=== PATIENT | female | born 1965 | race Caucasian/White ===

== ENCOUNTER 2016-07-12 11:18 | Inpatient (IN) | payer BC ==
--- NOTE | ~2016-07-12 | IDS ---
Interim Discharge Summary [facility] [address] [place]. [address] NAME: KRISH JONES : [birth year] STATUS : [facility] [id number] AGE: 50 ADM/REG DATE : 07/12/16 MR#: [id number] REPORT SERV DATE: 07/23/16 DICTATED BY: CHARLES GIBSON DATE: 07/23/16 REPORT STATUS : Draft TRANSCRIBED BY: MODL DATE: 07/23/16 ADMISSION DATE: 07/12/2016 DISCHARGE DATE: REASON FOR ADMISSION: Acute abdominal pain after having cholecystectomy done at [facility]. HISTORY OF PRESENT ILLNESS: Please refer Dr. Cleveland Garcia's history and physical dated 07/12/2016 for complete details regarding the patient's admission. In brief, the patient was initially admitted to the Hospitalist Service for what was initially concerning for an appendicitis and abnormal LFTs. HOSPITAL COURSE: From admission to 07/18/2016, please refer Dr. Cleveland Garcia's interim summary. In brief, the patient was diagnosed with biliary ductal mass along with transaminitis. Urinary tract infection that had been treated with IV antibiotics. A recent cholecystectomy with subsequent medication and opioid-induced constipation. Splenomegaly, recent Monospot positive. Post-ERCP pancreatitis. In brief, the patient presented to this hospital after developing abdominal pain, as initially thought to be a bile leak from her cholecystectomy. She had a CT scan of her abdomen done in the ER, which was concerning for an appendicitis. Dr. Harsh Wagner was consulted that day and felt like the patient did not have an appendicitis. GI Medicine was consulted for the transaminitis. They suggested doing a HIDA scan to rule out a bile leak, that was performed on 07/13 which showed status post cholecystectomy with liver scan sign indicative of either high-grade common bile duct obstruction or severe hepatic dysfunction. 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 This was then followed up by CT scan of the abdomen with contrast, which showed intrahepatic biliary ductal dilatation with soft tissue density measuring up to 17 x 60 mm at the level of common hepatic duct concerning for underlying mass at this level. Dr. Corado went in and did an ERCP on 07/15/2016, brushings demonstrated negative for malignancy. The patient continued to have elevated total bilirubin and AST, ALT levels, by all accounts it was felt like the patient had a malignancy, however, the location of the biliary mass was a diagnostic dilemma. Given the location of the biliary mass, Dr. Harris got involved to evaluate for possible exploratory surgery. Given her a non-improving liver enzymes and the fact that she may need exploratory surgery, Dr. Harris had discussed with IR to place a percutaneous drain. She currently has 2 drains. The next day she noticed some clots coming from the drains. Dr. Hester went back into the drains to evaluate its positioning and functioning and it demonstrated a good position. Her LFTs took a little bit of time, but they finally started going down. Biopsy results obtained by Dr. Hester was preliminary which showed positive for lymphoid tissue. Dr. Corado had also noticed the following day after the percutaneous drains were placed, the patient had pretty significant thickened gastric folds. Dr. Corado then went in and did an EGD, performed an EGD on 07/20/2016 and found a few small nodules with no bleeding and no stigmata of recent bleeding were found in the stomach. A biliary stent was removed as the patient had percutaneous drains and also biopsied some nodules. 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 We finally had our diagnosis, hematology/Oncology was following, Dr. Francisco Javier Graff had already Interim Discharge Summary [address] [address] NAME: KRISH JONES : 61 STATUS : [facility]#: [id number] AGE: 50 ADM/REG DATE : 07/12/16 MR#: [id number] REPORT SERV DATE: 07/23/16 DICTATED BY: CHARLES GIBSON DATE: 07/23/16 REPORT STATUS : Draft TRANSCRIBED BY: MODL DATE: 07/23/16 been following the patient for the past couple of days. Now that we have the final pathology report, the patient is going to be transferred over to the [address] [place] [address] under the service of Dr. Carl for initiation of Hyper-CVAD. She will receive her first dose today on 07/23/2016 and would likely be here for approximately four days. She had an echocardiogram done today just to evaluate her heart function prior to initiation of chemotherapy. DISPOSITION: Anticipate discharging the patient home likely with her percutaneous drains. Follow up with Dr. Harris in several weeks after she recovers from her Hyper-CVAD treatment. 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 Corado during an EGD, now with percutaneous drains; post ERCP pancreatitis; Enterobacter urinary tract infection, now resolved with antibiotics; recent cholecystectomy with opioid-induced constipation; splenomegaly; recent Monospot positive history; type 2 diabetes, on metformin at home. CONSULTATION: Dr. Wagner initially in the ER for appendicitis. Dr. Ro with Infectious Disease, no longer following. Dr. Corado with GI Medicine. Dr. Francisco Javier Graff and Dr. Guzman with Oncology. Dr. Harris for surgical evaluation. PROCEDURES: Include ERCP with stent placement 07/15/2016, EGD on 07/20/2016 with biopsy and stent removal, PTC drains, CT scan of the abdomen and pelvis without contrast, CT scan of the abdomen and pelvis with IV contrast, MRCP, HIDA scan, CT scan of the chest with contrast, KUB, chest x-ray, drain evaluation by IR x2, 2D echocardiogram. Further disposition by Dr. Carl, but as stated above, anticipate patient being in hospital for four days with initiation of Hyper-CVAD, will likely go home with the drains and follow up Dr. Harris in several weeks. DORA/QUINCY Charles Gibson MD / [id number] CC: Charles Gibson MD
--- NOTE | ~2016-07-12 | IDS ---
Interim Discharge Summary [place] [address] [place]. [address] NAME: KRISH JONES : 61 STATUS : ADM IN PAT#: [id number] AGE: 50 ADM/REG DATE : 07/12/16 MR#: [id number] REPORT SERV DATE: 07/20/16 DICTATED BY: FLAVIO BURNS DATE: 07/19/16 REPORT STATUS : Draft TRANSCRIBED BY: MODL DATE: 07/19/16 ADMISSION DATE: 07/12/2016 DISCHARGE DATE: 07/18/2016 CURRENT DIAGNOSES: 1. Biliary ductal mass. 2. Elevated liver function tests. 3. Urinary tract infection. 4. Recent cholecystectomy with subsequent medication and opioid-induced constipation. 5. Splenomegaly. 6. Recent Monospot positive history. 7. Gtg-fduhwpm-qoubtyyqi diabetes. 8. Post procedure endoscopic retrograde cholangiopancreatography pancreatitis. 9. Mild appendicitis. CONSULTATIONS: 1. Dr. Wagner, initially in the ER for appendicitis. 2. Infectious Disease. 3. GI, Dr. Corado and Dr. Michaud. 4. Oncology, Dr. Graff. 5. Dr. Harris, for hepatobiliary evaluation. CURRENT LABS AND PROCEDURES: Initial AST and ALT 381 and 1152, alk phos 945, T bili 2.8, lipase of 123, and lactate was 1.2. CT abdomen and pelvis on admission thickening appendix could indicate mild appendicitis, no significant periappendiceal inflammation, right colonic fecal stasis, distended urinary bladder, cholecystectomy, and hysterectomy. Procalcitonin 0.22. Hemoglobin A1c of 5.4. Ammonia 27. Hepatitis profile was negative. HIDA scan performed status post cholecystectomy with high-grade common bile duct obstruction or severe hepatic dysfunction. Blood cultures have remained negative. MRCP large dominant encapsulated malignant process involving the proper hepatic ductal system causing high-grade obstruction, secondary intrahepatic tumor also identified. Differential includes cholangiocarcinoma versus metastatic versus lymphoma. EBV antibody IgG positive and consistent with prior exposure, but not current activation per ID. EGD and ERCP noted for severe biliary stricture, malignant-appearing mass path brushings negative for malignancy. CT with contrast chest, abdomen, and pelvis, initial report intrahepatic biliary ductal dilatation with soft tissue density at the level of the common Interim Discharge Summary [place] [address] [facility] [place]. [address] NAME: KRISH JONES DOB: [birth year] STATUS : ADM IN PAT#: [id number] AGE: 50 ADM/REG DATE : 07/12/16 MR#: [id number] REPORT SERV DATE: 07/20/16 DICTATED BY: FLAVIO BURNS DATE: 07/19/16 REPORT STATUS : Draft TRANSCRIBED BY: MODL DATE: 07/19/16 duct to there from underlying mass. The distal common duct is decompressed, similar findings on MRCP of 07/13/2016. For further evaluation, ERCP may be helpful and appropriate. Mildly prominent appendix with distal to measuring up to 8 mm in diameter. Does not appear significant periappendiceal inflammation change strongly suggestive of acute appendicitis. Small hernia and a mild right upper lobe atelectasis, otherwise no acute cardiopulmonary etiology. Addendum was also done on 07/18/2016 at 3:[address] Harris and Radiology. Several borderline lymph nodes of upper abdomen. They are periportal lymph nodes, measuring 10 x 14 mm and some prominence iliac nodes measuring 10 x 15, just above the left renal vessels. Please see complete report on chart. HOSPITAL COURSE: Please see H and P for complete details of HPI. Briefly, this is a very pleasant 50-year-old Bos[place]ian female with great family support, her daughter who also works at [employer] as nurse practitioner for Cardiology, who has had somewhat confusing series of events over the last few months, as the patient has typically been fairly well state of health, did have history of malignancy in 2007 with resultant hysterectomy and resolution, who approximately for the last two months has undergone a viral infection with Monospot, subsequently had abdominal discomfort and found to have LFT elevations and HIDA scan with multiple CT scans. Ultrasounds of abdomen showed gallbladder disease approximately. One week prior to admission, the patient had undergone cholecystectomy that was negative on pathology with clean borders margins pictures by Dr. Dietrich in [place]. The patient was doing well and has been appropriately monitored by her PCP for serial LFTs. The patient did have a mild splenomegaly, that was also being monitored, however, was attributed to gallbladder disease and recent Monospot positive. However, on arrival to emergency room and during this hospital stay, the patient did have sudden elevations in LFTs when compared to most recent LFTs, which were within normal range, these are significantly abnormal. A dry CT without contrast, in the emergency room initially concerning for appendix, this was evaluated by General Surgery. Further workup was recommended, as the patient was not tender in the appendix area and right lower quadrants, and the patient was started on Zosyn. Further evaluation with ERCP for bowel leak from recent procedure was performed, concerning for an encapsulating mass MRCP was then subsequently performed and further defining mass and lesions. CT chest, abdomen, and pelvis for additional sites as concern for malignancy has been raised. From here, an ERCP was also performed with brushings, a single stent was able to be passed, however, additional duct was not able to have a stent placement. Pathology was negative. At this point due to clinical suspicion, it was recommended for Oncology evaluation and biliary surgery consultation, Dr. Harris was consult, Dr. Francisco Javier Graff was consulted on board, and further evaluation with possible percutaneous drain placement has been suggested and tentatively planned for 07/19/2016 to further assist in the diagnostic procedures. The patient additionally had post ERCP pancreatitis, which has shown improvement with IV fluids. Opioid constipation resolved with initial Relistor and Movantik combination. The patient has had slow improvement of LFTs and is still monitoring post ERCP. Her family has been updated with each test and procedure by Multidisciplinary Team. Care to be resumed by Medicine Team in a.m. NEGINN/QUINCY Interim Discharge Summary [address] [address] NAME: KRISH JONES : 61 STATUS : ADM IN PAT#: [id number] AGE: 50 ADM/REG DATE : 07/12/16 MR#: [id number] REPORT SERV DATE: 07/20/16 DICTATED BY: FLAVIO BURNS DATE: 07/19/16 REPORT STATUS : Draft TRANSCRIBED BY: MODNy DATE: 07/19/16 Flavio Burns MD / [id number] CC: UNKNOWN Kevin Noel M.D.
--- NOTE | ~2016-07-12 | EGD ---
EGD REPORT [facility] [address] [place] [address] NAME: KRISH ARGUELLO : 61 STATUS : ADM IN PAT#: [id number] AGE: 50 ADM/REG DATE : 07/12/16 MR#: [id number] REPORT SERV DATE: 07/15/16 DICTATED BY: DATE: REPORT STATUS : Draft TRANSCRIBED BY: [employer] DATE: 07/15/16 [facility] Patient Name: Krish Arguello Date of : 1965 Attending MD: BLAKE DURAN MD Procedure Date No Time: 07/15/2016 Procedure: ERCP Indications: Abnormal MRCP, Tumor of the upper third of the main bile duct Medicines: General Anesthesia Complications: No immediate complications. Estimated blood loss: Minimal. Procedure: Pre-Anesthesia Assessment: - ASA Grade Assessment: II - A patient with mild systemic disease. After obtaining informed consent, the scope was passed under direct vision. Throughout the procedure, the patient's blood pressure, pulse, and oxygen saturations were monitored continuously. The TJF [id number] was introduced through the mouth, and advanced to the duodenum and used to inject contrast into the bile duct. The ERCP was accomplished without difficulty. The patient tolerated the procedure well. Findings: The vocational nursing instructor film was normal. The esophagus was successfully intubated under direct vision. The scope was advanced to a normal major papilla in the descending duodenum without detailed examination of the pharynx, larynx and associated structures, and upper GI tract. After engaging the papilla, a 0.035 inch x 260 cm straight Dreamwire was passed into the biliary tree. The short-nosed traction sphincterotome was passed over the guidewire and the bile duct was then deeply cannulated. Contrast was injected. I personally interpreted the bile duct images. Image quality was adequate. The upper third of the main bile duct contained a single severe stenosis 15 mm in length. A 10 mm biliary sphincterotomy was made with a monofilament traction (standard) sphincterotome using ERBE electrocautery due to difficulty with obtaining initial entry into the bile duct. The sphincterotomy oozed blood but stopped spontaneously. Dilation of the common bile duct stenosis with a 4 mm balloon dilator was successful. Cells for cytology were obtained by brushing. One 10 Fr by 9 cm plastic stent with a single external flap and a single internal flap was placed into the common bile duct to the right intrahepatics. Bile flowed through the stent. The stent was in good position. The sphinctertome was used again to attempt to place a second wire and stent into the left intrahepatics, but despite several attempts, the wire EGD REPORT [place] [id number] [facility] [place]. [address] NAME: KRISH ARGUELLO : 61 STATUS : [facility]#: [id number] AGE: 50 ADM/REG DATE : 07/12/16 MR#: [id number] REPORT SERV DATE: 07/15/16 DICTATED BY: DATE: REPORT STATUS : Draft TRANSCRIBED BY: [employer] DATE: 07/15/16 could not be passed into the left biliary system. The endoscope was withdrawn from the patient. Impression: - A severe biliary stricture was found. The stricture was malignant appearing. Recommendation: - Return patient to [facility] for [facility] care. - Await cytology results. - Zosyn (piperacillin tazobactam) 3.375 gm IV q 6 hr for 3 days. Procedure Code(s): --- Professional --- 40712, Endoscopic retrograde cholangiopancreatography (ERCP); with placement of endoscopic stent into biliary or pancreatic duct, including pre- and post-dilation and guide wire passage, when performed, including sphincterotomy, when performed, each stent Diagnosis Code(s): --- Professional --- K83.1, Obstruction of bile duct R93.2, Abnormal findings on diagnostic imaging of liver and biliary tract D49.0, Neoplasm of unspecified behavior of digestive system CPT copyright 2013 [employer]. All rights reserved. The codes documented in this report are preliminary and upon auto self service station attendant review may be revised to meet current compliance requirements. Blake Duran MD BLAKE DURAN MD 07/15/2016 8:47 AM This report has been signed electronically. Number of Addenda: 0 Note Initiated On: 07/15/2016 6:54 AM Scope Withdrawal Time 0 hours 0 minutes 0 seconds [id number] [id number]
--- NOTE | ~2016-07-12 | DS ---
Discharge Summary [facility] [address] [place]. [address] NAME: KRISH JONES : [birth year] STATUS : ADM IN [facility]#: [id number] AGE: 50 ADM/REG DATE : 07/12/16 MR#: [id number] REPORT SERV DATE: 08/04/16 DICTATED BY: HEATHER DUMONT DATE: 08/04/16 REPORT STATUS : Draft TRANSCRIBED BY: MODL DATE: 08/04/16 ADMISSION DATE: 07/12/2016 DISCHARGE DATE: 08/04/2016 DISCHARGE DIAGNOSES: 1. B lymphoblastic acute lymphoblastic leukemia. 2. Elevated bilirubin of unclear etiology. 3. Biliary obstruction. 4. Pancytopenia secondary to chemotherapy. 5. Fever and neutropenia. PROCEDURES: 1. EGD with biopsy of stomach. 2. Placement of biliary catheters with biopsy of biliary tumor. 3. Repositioning of biliary drains. 4. Lumbar puncture with intrathecal chemotherapy administration x2. 5. Bone marrow biopsy. HOSPITAL COURSE: The patient was admitted to the hospital. She underwent an EGD, which did demonstrate B lymphoblastic leukemia lymphoma. She had biliary drains placed thinking that a Kl[place] tumor was present (prior to the EGD). Biopsy showed B lymphoblastic lymphoma. The drains were placed. She had bone marrow biopsy showing B lymphoblastic lymphoma with normal cytogenetics and weak CD20. She had a lumbar puncture with intrathecal chemotherapy administration, which showed positive cytology. She had a second administration of intrathecal chemotherapy as well. She underwent chemotherapy with T-[id number]-[id number]. She received full doses of rituximab, cyclophosphamide, vincristine. She received one four-day course of dexamethasone. Her dose of doxorubicin was given at 50% due to elevated bilirubin. The day 11 vincristine was not given secondary to elevated bilirubin. She has not yet been given a second course of dexamethasone. She had a bilirubin approximately 2.5 at admission and elevated transaminases. The transaminases improved with chemotherapy and placement of the biliary drain, but her bilirubin odalys to as high as 14. Today on 08/04/2016, it is down to 12.4 from 14.3 yesterday. She has pancytopenia and fever and has been on variety of antibiotics followed by infectious disease. Currently, she is on prophylactic acyclovir along with fluconazole 400 mg daily, levofloxacin and vancomycin with a plan to discontinue the levofloxacin. She has not been febrile recently. She did have a Gram positive from one of the biliary drains, significance of which is unclear. On 08/04/2016, the patient had requested transfer to [place]. There, she will be evaluated by manager of clinical, none is currently available at [facility]. DICTATED BY: Heather Dumont M.D. Discharge Summary [facility] [address] [place]. [address] NAME: KRISH JONES : 61 STATUS : ADM IN PAT#: [id number] AGE: 50 ADM/REG DATE : 07/12/16 MR#: [id number] REPORT SERV DATE: 08/04/16 DICTATED BY: HEATHER DUMONT DATE: 08/04/16 REPORT STATUS : Draft TRANSCRIBED BY: QUINCY DATE: 08/04/16 STALIN/QUINCY Heather Dumont M.D. / [id number] CC: Francisco Javier Graff M.D.
--- NOTE | ~2016-07-12 | HP ---
History And Physical [place] [id number] [facility] [place]. [address] NAME: KRISH JONES : 61 STATUS : ADM IN PAT#: [id number] AGE: 50 ADM/REG DATE : 07/12/16 MR#: [id number] REPORT SERV DATE: 07/12/16 DICTATED BY: FLAVIO BURNS DATE: 07/12/16 REPORT STATUS : Draft TRANSCRIBED BY: MODNy DATE: 07/12/16 DATE OF ADMISSION: 07/12/2016 CHIEF COMPLAINT: Abdominal pain. HISTORY OF PRESENT ILLNESS: The patient is a 50-year-old, [place] female, with past medical history of pxf-ybehkfl-tzbkipxxq diabetes, prior cancer status post hysterectomy in 2007, not requiring any additional treatment after surgical hysterectomy, who recently underwent a gallbladder surgery for abnormal LFTs, discovered to have cholesterol type stones and abnormal liver. HIDA scan done at outside facility was also noted to be abnormal, prompting surgical removal of liver. The patient did report somewhat clinical improvement, but over the last night started having abdominal pain similar to prior episode last night. The patient is accompanied by family members, daughter who is a nurse practitioner for [employer], and son who is at bedside. The patient reports that abdominal pain she initially attributed to postsurgical changes, which have been approximately about 6 days, has been able to tolerate small liquids, soups, but symptoms have been constant, moderate severity, initially in the mid epigastric, changing to the right upper quadrant, has been moderate sharp quality, nonradiating, but is moving in position, noted with one episode of diarrhea and the sense that is just liquid stool, however, last bowel movements have been 2 days ago and more of a constipation, overflow type bowel movement. The patient has had abdominal pain. No fevers or chills. Mild decreased p.o. intake. No weakness or cough. Does not felt well. The patient reports that symptoms actually have been going on and off since April when she was diagnosed with a viral illness, was initially thought to have flu but negative. Has also had enlarged spleen. Liver function test, which at her last clinic visit, her LFTs have been resolved, but today still has consistent splenomegaly and elevated LFTs again. Symptoms worsened with palpation. No relieve, symptoms still currently present. Has been taking q.4 hours Winder over the last 24 to 48 hours for pain control, which has been minimally improving. Please also note, the patient also had a positive mono spot test and was reported to be treating this supportively. Also, found to have fatty liver incidentally on imaging done at outside facility. REVIEW OF SYSTEMS: GENERAL: No fevers or chills. Mild sweating. EYES: No eye pain or visual changes. ENT: No congestion or sore throat reported. NEURO: No headache or confusion. SKIN: No rashes or bruising reported. RESPIRATORY: No shortness of breath or cough. CV: No chest pain or palpitations reported. GI: No gross nausea or vomiting currently. Has been constipated for multiple days. One loose bowel movement, which was mainly water, significant abdominal pain, but no dark stools. : No dysuria, hematuria. MUSCULOSKELETAL: No myalgias or arthralgias. NEURO: No fatigue. HEME: No bleeding or bruising. History And Physical [address] [address] NAME: KRISH JONES : 61 STATUS : ADM IN [facility]#: [id number] AGE: 50 ADM/REG DATE : 07/12/16 MR#: [id number] REPORT SERV DATE: 07/12/16 DICTATED BY: FLAVIO BURNS DATE: 07/12/16 REPORT STATUS : Draft TRANSCRIBED BY: QUINCY DATE: 07/12/16 IMMUNOLOGIC: No rhinorrhea. PSYCH: No anxiety or confusion. PAST MEDICAL HISTORY: Noted for hyperlipidemia, win-fdujqab-nxljbrknj diabetes. SURGICAL HISTORY: Hysterectomy for cancer in 2007 and gallbladder recently approximately one week ago, cholecystectomy. SOCIAL HISTORY: No smoking, alcohol, or illicits. . Accompanied with children from [facility]. Last trip to [facility] was last year. This year only has traveled to [place] in June, but no sick contacts reported. FAMILY HISTORY: Diabetes, heart disease, kidney disease, requiring dialysis in mother. Recent allergy to sulfa as the patient has been on and off multiple treatments for either UTI or some type of infectious etiology that has been initially thought for gallbladder and abdominal pain discomfort. ALLERGIES: NOTED FOR SULFA, CODEINE. HOME MEDICATIONS: Recently completed Keflex yesterday after which she started having abdominal discomfort after last dose. Also Winder, Glucophage, and Phenergan. PHYSICAL EXAMINATION: VITAL SIGNS: The patient's blood pressure 139/83, temperature 97.9, pulse 90, respirations 14, O2 sats 98% on room air. GENERAL: No acute distress at rest, but obviously uncomfortable. Well developed, well nourished. EYES: No scleral icterus. EOMI. ENT: Dry mucous membranes. Tongue midline. RESPIRATORY: Clear to auscultation. No wheezes. CV: Regular rate. No rubs. No pedal edema. GI: Tenderness to palpation in right quadrant with mild distention and decreased bowel sounds. : Deferred. MUSCULOSKELETAL: Moves all extremities x4. SKIN: Warm, dry. LYMPH: No cervical or supraclavicular lymphadenopathy. HEME: No bleeding or bruising. NEURO: Alert and oriented. No asterixis. Moves all extremities. PSYCH: Appropriate mood and affect. LABORATORY DATA: CT abdomen and pelvis, thickened appendix, mild appendicitis, although currently no significant periappendiceal inflammation. Clinical correlation is recommended. Right colonic fecal stasis, distended urinary bladder, cholecystectomy, hysterectomy. Lactate 1.2. CBC; WBC count 10.3, H and H 13.9 and 41.9, platelets 179, bands 29. CMP: Sodium 139, potassium 3.7, chloride 105, bicarb 24, BUN and creatinine 8 and 0.83, glucose History And Physical [address] [address] NAME: KRISH JONES : 61 STATUS : ADM IN [facility]#: [id number] AGE: 50 ADM/REG DATE : 07/12/16 MR#: [id number] REPORT SERV DATE: 07/12/16 DICTATED BY: FLAVIO BURNS DATE: 07/12/16 REPORT STATUS : Draft TRANSCRIBED BY: MODL DATE: 07/12/16 144. AST and ALT 381 and 1152. Alkaline phosphatase 945. T. bilirubin 2.8. Lipase 123. Of note, the patient's recent LFTs, AST, ALT 18 and 27, bilirubin 0.4. Has noted to have fatty infiltration of liver. Mild splenomegaly. ASSESSMENT AND PLAN: 1. Abdominal pain with elevated LFTs. 2. Possible mild appendicitis. 3. Recent Monospot positive with splenomegaly and bandemia. 4. Recent cholecystectomy. 5. Jtg-yigvhda-pvnsnnyzn diabetes type 2. 6. Hyperlipidemia. 7. Constipation. PLAN: 1. For abdominal pain with elevated LFTs biliary tract disease versus constipation versus viral infectious unperformed with history of gallbladder prior, may benefit from repeat HIDA. We will defer to Surgery's recommendations. Does have fatty liver. GI, family requesting Dr. Michaud for additional evaluation. 2. Possible mild appendicitis. Treat constipation. Supportive treatment. Surgery consult by ER to evaluate. 3. Recent monospot with splenomegaly and bandemia. Recently stopped antibiotics yesterday, but has had persistent splenomegaly, multiple viral and bacterial issues over the last two months. We will ask ID to evaluate for quite complicated sudden bacterial and viral episodes over the last two months, but no definitive source. 4. Recent cholecystectomy. Check for possible questionable leakage with surgical procedure by Dr. Mcadams in [place], was reported to have cholesterol stones. CT also performed. 5. Lys-lrjgsfw-mpzlzritx diabetes. Sliding scale insulin. Borderline. 6. Hyperlipidemia. Check lipid panel. Repeat due to have positive cholesterol stones in gallbladder per family. 7. Constipation. Dose of Relistor, Movantik, bowel regimen. Anticipate greater than two midnight inpatient stay. DDN/MODL Flavio Burns MD / [id number] CC: Flavio Burns MD
--- NOTE | ~2016-07-12 | CN ---
Consultation Report [facility] [address] [place]. [address] NAME: KRISH JONES : 61 STATUS : ADM IN [facility]#: [id number] AGE: 50 ADM/REG DATE : 07/12/16 MR#: [id number] REPORT SERV DATE: 07/12/16 DICTATED BY: SHIRLEY WAGNER DATE: 07/12/16 REPORT STATUS : Draft TRANSCRIBED BY: MODL DATE: 07/12/16 SURGERY CONSULTATION NOTE DATE OF CONSULTATION: 07/12/2016 REASON FOR CONSULTATION: Abdominal pain. HISTORY OF PRESENT ILLNESS: This is a 50-year-old female, who six days ago, had a laparoscopic cholecystectomy done for cholelithiasis. She initially felt better after this from her left upper quadrant pain, but subsequently had recurrence of right upper quadrant abdominal pain. She was evaluated in the emergency department and on CT scan, was felt to have an enlarged appendix. Although, there was no bile collection, no abscess in the right upper quadrant. The patient's white blood cell count was normal. She states she had some night sweats, but denies any fevers. She is currently being treated for urinary tract infection as well. MEDICAL HISTORY: Please see the admitting history and physical by Dr. Garcia. SURGICAL HISTORY: Please see the admitting history and physical by Dr. Garcia. SOCIAL HISTORY: Please see the admitting history and physical by Dr. Garcia. FAMILY HISTORY: Please see the admitting history and physical by Dr. Garcia. ALLERGIES: PLEASE SEE THE ADMITTING HISTORY AND PHYSICAL BY DR. GARCIA. MEDICATIONS: Please see the admitting history and physical by Dr. Garcia. REVIEW OF SYSTEMS: Please see the admitting history and physical by Dr. Garcia. PHYSICAL EXAMINATION: VITAL SIGNS: Blood pressure 139/83, temperature 97.7, pulse 90, respiratory rate 14, 99% on room air. GENERAL: Alert and oriented x3. No acute distress. HEENT: Normocephalic, atraumatic. NECK: Supple. No carotid bruits are noted. No cervical lymphadenopathy. No thyromegaly. No thyroid nodules are palpable. CHEST: Clear to auscultation bilaterally. HEART: Regular rate and rhythm. No murmurs, rubs, or gallops are auscultated. ABDOMEN: Soft and only mildly tender in the right upper quadrant and epigastrium. There is no left upper quadrant tenderness to palpation. There is no right lower quadrant tenderness to palpation. There is no Rovsing sign, no psoas sign. There are certainly no peritoneal signs. Her incisions are all clean, dry, and intact with Dermabond still in place. No Consultation Report [place] [address] [place] [address] NAME: KRISH JONES : 61 STATUS : ADM IN [facility]#: [id number] AGE: 50 ADM/REG DATE : 07/12/16 MR#: [id number] REPORT SERV DATE: 07/12/16 DICTATED BY: SHIRLEY WAGNER DATE: 07/12/16 REPORT STATUS : Draft TRANSCRIBED BY: QUINCY DATE: 07/12/16 erythema around any of them. EXTREMITIES: Warm and well perfused without edema. NEURO: No focal neurologic deficits are noted on gross exam. IMAGING: As above. I personally reviewed the images. I do not feel that she necessarily has acute appendicitis as there is no stranding around her appendix. Although, certainly it seems a little bit prominent. There was no evidence of complications from her prior surgery. There are [address] It appeared to be in good position without surrounding stranding any evidence of biloma or abscess. LABORATORIES: Her total bilirubin is elevated at 2.8 as are the rest of her LFTs. Her lipase is normal. ASSESSMENT: Doubt appendicitis. Abdominal pain, not otherwise specified in the postop setting. RECOMMENDATIONS: Recheck her LFTs and her CBC in the morning. Continue her on some antibiotics for now for broad coverage. If her LFTs are still elevated in the morning, GI consult. I will continue to follow the patient for serial abdominal exams. ECN/QUINCY Shirley Wagner MD / [id number] CC: Cleveland Garcia MD
--- NOTE | ~2016-07-12 | CN ---
Consultation Report [facility] [address] [place]. [address] NAME: KRISH ARGUELLO : 61 STATUS : ADM IN PAT#: [id number] AGE: 50 ADM/REG DATE : 07/12/16 MR#: [id number] REPORT SERV DATE: 07/17/16 DICTATED BY: JUAN PABLO GRAFF DATE: 07/17/16 REPORT STATUS : Draft TRANSCRIBED BY: MODL DATE: 07/17/16 CONSULTATION REPORT DATE OF CONSULTATION: 07/17/2016 REASON FOR CONSULTATION: Mass at the components of the right and left biliary ducts. 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 HISTORY OF PRESENT ILLNESS: Ms. Arguello is a very healthy 50-year-old, with little past medical history other than a recent diagnosis of diabetes. She underwent a cholecystectomy a few weeks ago and has been doing well since then. No signs of abnormality at that time per the family. The patient reports that in April, she had a significant fatigue, weakness and elevation of the liver enzymes, and then she was thought to perhaps have an EBV virus, although testing was negative. She recovered somewhat from this, but started having abdominal pain, thought to be secondary to cholecystitis. She underwent a cystectomy, tolerating this quite well. She has since been admitted for ongoing abdominal pain seven days after the cholecystectomy. Throughout the last three months, she has lost [address] scan imaging and the MRI as well earlier this week, suggest that there may be a mass involving the hepatic ductal system causing obstruction and a separate 1 cm tumor more superior to this. The patient underwent ERCP on 07/15. Tissue from this does not confirm malignancy, although it may be nondiagnostic. Her liver enzymes and lipase are markedly up post ERCP consistent with pancreatitis. She is doing fairly well other than the abdominal pain. Her weight started to improve since the surgery and overall she appears quite healthy. PAST MEDICAL HISTORY: Diabetes and recent cholecystectomy. SOCIAL HISTORY: She is originally from [facility]. She has been in the [place] for three decades. She works at [employer]. Denies any alcohol or drug abuse. FAMILY HISTORY: No family history of malignancy, inflammatory bowel condition, or other problems. ALLERGIES: RECENT ALLERGY TO SULFA CAUSING A RASH. CURRENT MEDICATIONS: In the hospital include: Colace, NovoLog, Protonix, Zosyn, and IV fluids. REVIEW OF SYSTEMS: 12-point review of systems negative except for the weight loss and abdominal pain described above. PHYSICAL EXAMINATION: VITAL SIGNS: Temperature at 98.1, heart rate of 61, BP 147/69. Consultation Report [facility] [address] [address] NAME: KRISH ARGUELLO : 61 STATUS : ADM IN PAT#: [id number] AGE: 50 ADM/REG DATE : 07/12/16 MR#: [id number] REPORT SERV DATE: 07/17/16 DICTATED BY: JUAN PABLO GRAFF. DATE: 07/17/16 REPORT STATUS : Draft TRANSCRIBED BY: MODL DATE: 07/17/16 HEENT: Pupils equal, round, and reactive. No oral lesions. No cervical adenopathy. LUNGS: Clear to auscultation. No wheezes, rales, or rhonchi. CARDIAC: Regular rate and rhythm. Normal S1, S2. ABDOMEN: Soft, nontender, nondistended. EXTREMITIES: No clubbing, no cyanosis, no edema. IMAGING: CT scans reviewed in detail with the family. ASSESSMENT/PLAN: Ms. Arguello is 50 years old, otherwise healthy. 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 Treatment for this would only be surgery and with or without other further local therapy, such as radiofrequency ablation or other surgery. I think we need to get Dr. Harris involved if CT-guided biopsy would not change the surgical procedure. I think that would be reasonable. The patient does have some splenomegaly, but I think this is unlikely a primary lymphoma causing both areas. Pain is fairly well controlled now. The patient remains quite anxious that we would not assume malignancy without diagnosis. I reassured her that we are quite cautious with this. DBD/MODL Juan Pablo Graff M.D. / [id number] CC: Cleveland Garcia MD
--- NOTE | ~2016-07-12 | EGD ---
EGD REPORT [facility] [address] [place] [address] NAME: KRISH ARGUELLO : 61 STATUS : ADM IN PAT#: [id number] AGE: 50 ADM/REG DATE : 07/12/16 MR#: [id number] REPORT SERV DATE: 07/20/16 DICTATED BY: DATE: REPORT STATUS : Draft TRANSCRIBED BY: [employer] DATE: 07/20/16 Endoscopy Center Patient Name: Krish Arguello Date of : 1965 Attending MD: BLAKE DURAN MD Procedure Date No Time: 07/20/2016 Procedure: Upper GI endoscopy Indications: Abnormal CT of the GI tract, Abnormal MRI of the GI tract Medicines: Monitored Anesthesia Care Complications: No immediate complications. Estimated blood loss: Minimal. Procedure: Pre-Anesthesia Assessment: - ASA Grade Assessment: III - A patient with severe systemic disease. After obtaining informed consent, the endoscope was passed under direct vision. Throughout the procedure, the patient's blood pressure, pulse, and oxygen saturations were monitored continuously. The GIF [id number] was introduced through the mouth, and advanced to the second part of duodenum. The upper GI endoscopy was accomplished without difficulty. The patient tolerated the procedure well. Findings: The examined esophagus was normal. A medium amount of food (residue) was found in the gastric fundus. A few small papules (nodules) with no bleeding and no stigmata of recent bleeding were found in the gastric antrum. Biopsies were taken with a cold forceps for histology. Estimated blood loss was minimal. Two biliary stents were seen in the area of the papilla - one endoscopically placed and one placed by IR. The stent placed via ERCP was removed with rat-toothed forceps. Estimated blood loss: none. The exam was otherwise without abnormality. Impression: - A medium amount of food (residue) in the stomach. - A few small papules (nodules) with no bleeding and no stigmata of recent bleeding were found in the stomach. Biopsied. - Biliary stent. Removed. - The examination was otherwise normal. Recommendation: - Return patient to [facility] for ongoing care. - Return to previous diet today. - Await pathology results. EGD REPORT [address] [address] NAME: KRISH ARGUELLO : 61 STATUS : ADM IN [facility]#: [id number] AGE: 50 ADM/REG DATE : 07/12/16 MR#: [id number] REPORT SERV DATE: 07/20/16 DICTATED BY: DATE: REPORT STATUS : Draft TRANSCRIBED BY: Spark Etail DATE: 07/20/16 Procedure Code(s): --- Professional --- 87840, Esophagogastroduodenoscopy, flexible, transoral; with removal of foreign body 58778, Esophagogastroduodenoscopy, flexible, transoral; with biopsy, single or multiple Diagnosis Code(s): --- Professional --- T18.2XXA, Foreign body in stomach, initial encounter K31.9, Disease of stomach and duodenum, unspecified R93.3, Abnormal findings on diagnostic imaging of other parts of digestive tract CPT copyright 2013 [employer]. All rights reserved. The codes documented in this report are preliminary and upon entry level staff accountant review may be revised to meet current compliance requirements. Blake Duran MD BLAKE DURAN MD 07/20/2016 9:13 AM This report has been signed electronically. Number of Addenda: 0 Note Initiated On: 07/20/2016 8:34 AM Scope Withdrawal Time 0 hours 0 minutes 0 seconds [id number] [place] [id number]
--- NOTE | ~2016-07-12 | CN ---
Consultation Report [facility] [address] [place]. [address] NAME: KRISH ARGUELLO : 61 STATUS : ADM IN [facility]#: [id number] AGE: 50 ADM/REG DATE : 07/12/16 MR#: [id number] REPORT SERV DATE: 07/13/16 DICTATED BY: MATT WILKS DATE: 07/13/16 REPORT STATUS : Draft TRANSCRIBED BY: MODNy DATE: 07/13/16 GI CONSULTATION DATE OF CONSULTATION: 07/13/2016 A 50-year-old female patient admitted on 07/12/2016. REASON FOR CONSULTATION: Evaluation and management of elevated LFTs, status post cholecystectomy. HISTORY OF PRESENT ILLNESS: Ms. Arguello is a 50[facility] who presented to [facility] with a chief complaint of abdominal pain. She is status post cholecystectomy 6 days ago. She had cholecystectomy secondary to abdominal discomfort. HIDA scan revealed no visualization of the gallbladder. She states she has been having difficulty with abdominal discomfort in the past [id number] months. She has been seen at [facility] and was treated for urinary tract infection. She states that she had a reaction to the antibiotics from that. She had continued with abdominal pain and anorexia, stating that she has lost roughly 20 pounds since the beginning of symptom onset. Initially she states her liver enzymes were elevated but returned to normal prior to surgical intervention. There is laboratory data on the chart dated 06/14/2016, with an ALT of 27 and an AST of 18. Her total bilirubin is 0.4. She does also have a history of a positive Monospot test. She states that initially after her surgery, she felt well but over the weekend, she had increase in abdominal discomfort stating that she had distention in her epigastric region, feeling like something was "blocked" or that she had a small balloon in there being continuously blown up. She had no vomiting but was nauseous. She has not had hardly any bowel movements since surgery. CT scan showed fecal stasis. She has received laxatives with good results per her report as well as the . She denies fever but endorses night sweats. CT scan done here on admission showed thickening of the appendix, questionably mild appendicitis, no periappendiceal inflammation as well as right colonic fecal stasis. Her total bilirubin on admission was 2.8, alkaline phosphatase of 945, GGT of 477, ALT of 1152, and AST of 381. Lipase is normal at 123. She had a white blood cell count of 10.3. She also had findings of urinary tract infection and was put on empiric Zosyn. She has been seen by Surgery with no indication for surgical intervention at this point in time. This morning, she says her abdominal pain has continued but has improved since she has had some bowel movements. I have discussed with the patient as well as her who is present at the bedside that we will order a HIDA scan to rule out bile leak. PAST MEDICAL HISTORY: Positive for recent diagnosis of diabetes, cholelithiasis, hyperlipidemia, and cancer. SURGICAL HISTORY: Hysterectomy and gallbladder removal. SOCIAL HISTORY: She lives independently and is . She denies any alcohol, tobacco, or illicits. Consultation Report [address] [place]. [address] NAME: KRISH ARGUELLO : 61 STATUS : ADM IN [facility]#: [id number] AGE: 50 ADM/REG DATE : 07/12/16 MR#: [id number] REPORT SERV DATE: 07/13/16 DICTATED BY: MATT WILKS DATE: 07/13/16 REPORT STATUS : Draft TRANSCRIBED BY: QUINCY DATE: 07/13/16 FAMILY HISTORY: Noncontributory from a GI standpoint. ALLERGIES: ARE TO SULFA AND CODEINE. HOME MEDICATIONS: Keflex, [place], Glucophage, and Phenergan. REVIEW OF SYSTEMS: A 10-point review of systems obtained. Pertinent positives addressed in the history of present illness. PHYSICAL EXAMINATION: VITAL SIGNS: Temperature is 98.2, pulse of 57, respirations 16, and blood pressure is 109/57. GENERAL: Physical exam reveals an alert female resting in bed with no obvious focal deficits. GENERAL: Cooperative, in no apparent distress. Awake, alert, and oriented x3. HEAD, EARS, EYES, NOSE, AND THROAT: Very mild scleral icterus noted. Pupils are equal, round, and reactive to light and accommodation. Normocephalic and atraumatic. SKIN: Warm, dry, and intact. No notable jaundice. NECK: No JVD. No palpable nodes. Supple. LUNGS: Diminished in the bases. Clear in the upper lobes. Normal respiratory effort exhibited. CARDIOVASCULAR SYSTEM: Regular rate and rhythm. ABDOMEN: Soft, nondistended, but tender to palpation. She has 3 lap sites noted. PERTINENT LABORATORY DATA: Sodium 142, potassium 3.7, BUN is 4, creatinine 0.77. White count 6.8, hemoglobin 11.6, hematocrit 35.7, and platelet count 140. Direct bilirubin 2.4, indirect bilirubin 0.7, total bilirubin 3.1, alkaline phosphatase 749, GGT 477, ALT 665, and AST 138. ASSESSMENT AND PLAN: 1. Elevated LFTs. 2. Abdominal pain. 3. Recent cholecystectomy. 4. Type 2 diabetes, new diagnosis 2 to 3 months ago. 5. Constipation. 6. Fatty liver disease and splenomegaly. 7. Questionable mild appendicitis. 8. Urinary tract infection. PLAN: 1. HIDA scan to rule out bile leak. 2. Check hepatitis panel. 3. Trend LFTs. 4. Continue Zosyn. We will follow. Consultation Report [address] [address] NAME: KRISH ARGUELLO : 61 STATUS : ADM IN [facility]#: [id number] AGE: 50 ADM/REG DATE : 07/12/16 MR#: [id number] REPORT SERV DATE: 07/13/16 DICTATED BY: MATT WILKS DATE: 07/13/16 REPORT STATUS : Draft TRANSCRIBED BY: QUINCY DATE: 07/13/16 RAJEEV/QUINCY GÉNESIS Bates / [id number] CC: Cleveland Garcia MD
--- NOTE | ~2016-07-12 | CN ---
Consultation Report [facility] [address] [place]. [address] NAME: KRISH JONES : 61 STATUS : ADM IN PAT#: [id number] AGE: 50 ADM/REG DATE : 07/12/16 MR#: [id number] REPORT SERV DATE: 07/29/16 DICTATED BY: CHRISTIANA VERMA DATE: 07/29/16 REPORT STATUS : Draft TRANSCRIBED BY: MODL DATE: 07/29/16 INFECTIOUS DISEASE CONSULT DATE OF CONSULTATION: 07/29/2016 REASON FOR CONSULTATION: MSSA sepsis. HISTORY OF PRESENT ILLNESS: This is a 50-year-old female, who has had a complicated hospital course and was previously followed for infectious disease issues by Dr. Ro. The interval history since he signed off on 07/15/2016 is reviewed. The patient had been admitted back on 07/12/2016 with a very complicated history well summarized in Dr. Ro's initial consultation. This eventually has led to a diagnosis of a B lymphoblastic lymphoma/leukemia based on biopsy of a stomach nodule and liver biopsy and bone marrow biopsy. The patient was started on chemotherapy with hyper-CVAD. I would note too that her spinal fluid had positive cytology. This chemotherapy was begun on 07/24/2016 after placement of a PICC line on 07/23/2016. Back on 07/19/2016, the patient had biliary drains placed into the right and left systems and these remain in place. The patient had been on empiric Zosyn during this hospitalization, and this was discontinued on 07/21/2016. The patient has become neutropenic over the past 48 hours from her chemotherapy. On 07/27/2016, the patient went to Radiology for re-assessment of her drains. It had been noted that the output from both drains but particularly the left side had been much decreased in the days prior to that. The assessment showed that the left-sided biliary drain had pulled out quite a bit, but not entirely out of the biliary duct system. A new drain was placed into the main left hepatic duct. In addition, the right-sided drain had also retracted back somewhat and a new catheter was also placed over wire into the right side. The day following this, yesterday, the patient began having fevers which went as high as 101.4 and she also had fever today of 101.4. Blood cultures were done yesterday. The blood culture set drawn from the peripheral stick is positive for presumptive MSSA. The blood culture drawn from the PICC line is negative to date. The patient was restarted on Zosyn yesterday and one dose of vancomycin was given today. The patient has also developed increasing bilirubin from her already elevated level, today up to 9.6. She complains of abdominal pain, but is not particularly better or worse. She denies any cough, diarrhea, vomiting, difficulty swallowing, or pain with swallowing. She states she is frustrated about all that she has been through and also is scared about the situation. Past medical history and family and social history will not be repeated with this dictation. ALLERGIES: SULFA AND CODEINE. PRESENT MEDICATIONS: In addition to the antibiotics mentioned include acyclovir, allopurinol, Protonix, MiraLAX, and Ambien. REVIEW OF SYSTEMS: As outlined above. She also denies any cough. Consultation Report [address] [place]. [address] NAME: KRISH JONES : 61 STATUS : ADM IN [facility]#: [id number] AGE: 50 ADM/REG DATE : 07/12/16 MR#: [id number] REPORT SERV DATE: 07/29/16 DICTATED BY: CHRISTIANA VERMA DATE: 07/29/16 REPORT STATUS : Draft TRANSCRIBED BY: QUINCY DATE: 07/29/16 PHYSICAL EXAMINATION: GENERAL: The patient is sitting up in a chair. Alert, oriented, and in no acute distress. VITAL SIGNS: Presently afebrile, blood pressure 106/58; pulse 78, it did go as high yesterday as 112 and was up to 106 today; respiratory rate 16. HEAD AND NECK: The oral cavity shows no thrush. Neck is supple. LUNGS: Clear to auscultation. CARDIAC: Regular rate and rhythm. Normal S1, S2 without murmur, gallop, or rub. ABDOMEN: She has two biliary drains covered by dressings, draining fairly clear-appearing bilious fluid. The abdomen is mildly distended. Soft. Mild tenderness to palpation, not very well localized. EXTREMITIES: The patient has a PICC line in the right arm covered by dressing. She has no peripheral edema. SKIN: Without rash. LABORATORY STUDIES: White blood cell count today is 0.2, hemoglobin 7.7, platelets 48,000. Creatinine 0.69, bilirubin 9.6, alkaline phosphatase 150, transaminase is normal. Yesterday, procalcitonin 6.72. MICROBIOLOGY STUDIES: As outlined above. In addition, on 07/20/2016, a culture from a biliary drain grew Charlotte albicans. RADIOLOGIC STUDIES: As outlined above. In addition, the patient had a followup CT scan of the abdomen and pelvis yesterday. This is reviewed and shows that the biliary drains appear to be in good position. There is a fluid collection just anterior to the upper liver with some free air within it. The patient's chest x-ray on 07/24/2016 was negative. IMPRESSION: Methicillin-susceptible Staphylococcus aureus septicemia in a neutropenic patient on chemotherapy. The source of this is not entirely clear. I doubt it is from the PICC line now as the positive blood cultures from the peripheral stick in the PICC line was only placed on 07/23/2016. I am concerned that the source could be from the biliary tract and/or drains. The fevers began after the drains were manipulated on 07/27/2016. The left- sided drain had migrated out quite a bit and the opportunity for secondary staph infection of the drain system is there and this could have seeded the biliary system itself. In addition, there is this fluid collection just anterior to the liver which could also be secondarily infected from all this and could be acting essentially like an abscess. Finally, I note that the culture from the biliary drain on 07/20/2016 grew Charlotte albicans and certainly Charlotte could be involved in this also. PLAN: 1. We will begin Ancef for optimal coverage of the Staph. 2. We will change Zosyn to aztreonam. I think she needs gram-negative coverage also given her neutropenia at this point. 3. We will begin fluconazole to cover the possible role of Charlotte. 4. We will send a culture of the fluid from each drain. Consultation Report [address] [place]. [address] NAME: KRISH JONES : 61 STATUS : ADM IN [facility]#: [id number] AGE: 50 ADM/REG DATE : 07/12/16 MR#: [id number] REPORT SERV DATE: 07/29/16 DICTATED BY: CHRISTIANA VERMA DATE: 07/29/16 REPORT STATUS : Draft TRANSCRIBED BY: QUINCY DATE: 07/29/16 5. If her fevers do not resolve, we have to consider aspiration of the fluid collection on the liver if her platelet count will allow it. 6. I discussed the above with Dr. Diego. LAYNE/QUINCY Christiana Verma M.D. / [id number] CC: Francisco Javier Graff M.D. UNKNOWN
--- NOTE | ~2016-07-12 | CN ---
Consultation Report [facility] [address] [place]. [address] NAME: KRISH JONES : 61 STATUS : ADM IN [facility]#: [id number] AGE: 50 ADM/REG DATE : 07/12/16 MR#: [id number] REPORT SERV DATE: 07/13/16 DICTATED BY: HUSSAIN SOSA DATE: 07/13/16 REPORT STATUS : Draft TRANSCRIBED BY: MODNy DATE: 07/13/16 INFECTIOUS DISEASE CONSULT DATE OF CONSULTATION: REASON FOR REFERRAL: Evaluation and treatment of possible postoperative infection, and possible mononucleosis complications. HISTORY OF PRESENT ILLNESS: The patient is a 50-year-old female. She has a history of diabetes mellitus. She had endometrial cancer in the past, distant. She was generally doing well though in excellent health, very active, running every day, and full-time employed, and in April, she became ill with acute illness, characterized by fevers that reached as high as 102 and severe malaise and fatigue. She saw her primary care physician and was ultimately diagnosed with Yareli-Justin virus according to the history that her daughter gave me who is a nurse practitioner. She had elevated liver function tests at that time as well. She was treated conservatively as appropriate and gradually felt better, but never completely back to normal. It was documented according to her daughter that her liver function tests did return to normal. She continued to have decreased energy and fatigue and was not able to restart her usual activities. She developed a urinary tract infection soon after that, that was diagnosed in the emergency room at [facility], and she was treated with Septra, but developed a severe body wide rash, which led to her receiving a course of steroids. She has had two different urinary tract infection diagnoses since then. She, in the last few weeks, developed pain in her left upper quadrant. Imaging revealed that she had persistent splenomegaly which had been seen during the mono episode and as well evidence of cholelithiasis and a rise again of liver function tests including bilirubin and alkaline phosphatase, and so, she was evaluated by Surgery, and six days ago at [facility], she underwent a laparoscopic cholecystectomy. She said she did okay for a couple of days, but then over the weekend, began to have severe right upper quadrant pain that grew progressively worse to the point she could not bear it and came in, and was admitted yesterday. She had no documented fever here. Her white blood cell count was within normal range. Her liver enzymes were elevated with a total bilirubin of 2.8, an alkaline phosphatase of 945, SGPT 1152, and SGOT of 381. CT scan of the abdomen and pelvis showed the signs of the recent surgery. There was some thickening of the appendix which could indicate a mild appendicitis, but no periappendiceal inflammation or signs of an abscess and just signs of the recent surgery. Cultures of her blood were taken. She was started on Zosyn empirically. She states she feels somewhat better. She did have abnormal urinalysis, greater than 182 white blood cells, large leukocyte esterase, and is growing greater than 100,000 colonies of what appear to be two different gram-negative rods. She does continue to have splenomegaly as noted on the CT. PAST MEDICAL HISTORY: Otherwise unremarkable. MEDICATIONS: As mentioned above. Consultation Report [address] [place]. [address] NAME: KRISH JONES : 61 STATUS : ADM IN [facility]#: [id number] AGE: 50 ADM/REG DATE : 07/12/16 MR#: [id number] REPORT SERV DATE: 07/13/16 DICTATED BY: HUSSAIN SOSA DATE: 07/13/16 REPORT STATUS : Draft TRANSCRIBED BY: QUINCY DATE: 07/13/16 ALLERGIES: SHE IS ALLERGIC OBVIOUSLY TO SULFA. SOCIAL HISTORY: She is originally from [place], but has lived in [place] [place] [facility] for more than 30 years. She has not been to [place] for approximately a year. She works at [employer], . Her accompanied her in the room. Nonsmoker. No history of alcohol or substance abuse or even use. FAMILY HISTORY: Noncontributory. PHYSICAL EXAMINATION: GENERAL: A nontoxic adult female in no acute distress. Alert and oriented x3. VITAL SIGNS: Her temperature at present 97.8 with a pulse of 65, respirations 18, blood pressure 95/54. Weight is 74 kg. HEENT: Sclerae clear. No oral lesions. NECK: Supple without lymphadenopathy. LUNGS: Clear. HEART: Regular rate and rhythm. ABDOMEN: Soft. Mildly tender in the right upper quadrant without guarding or rebound. Positive bowel sounds are heard. Wounds look good. EXTREMITIES: Without clubbing, cyanosis, or edema. No rashes are noted. LABORATORY DATA: White blood cell count 10.3 when she came in, 6.8 today with hematocrit of 35.7, and platelets 140, 72 segs, 4% bands; there were 29% bands last evening. BUN and creatinine 4 and 0.77. Liver function tests are as previously mentioned. Procalcitonin 0.22. Blood cultures thus far are negative. IMPRESSION: Very complicated case. First of all, does she have a postoperative infection or a new intraabdominal infection such as appendicitis. The surgeons think the latter is unlikely. There could be a bile leak or some complication of the surgery and that still needs to be determined. If so, we would be worried about gram-negative rods and anaerobes. Secondly, urinary tract infection with gram-negative brad. It is concerning why this has begun to happen to her more frequently recently when she did not have a problem before, and finally, did she truly have Yareli-Justin virus infection in April, and if so, is it playing any role in what is going on now, which I think is doubtful. RECOMMENDATIONS: 1. Follow up with cultures. 2. Follow up with gastrointestinal studies. 3. Agree with Zosyn empirically for now to cover both possible postoperative infection and for the urinary tract infection. 4. Check Yareli-Justin virus serologies and compare them to the old ones; and get those sent from the primary care office, her daughter will attempt to get that done today. 5. Finally, I will follow the patient with you. I appreciate very much your consulting on this patient. Consultation Report [address] [place]. [address] NAME: KRISH JONES : 61 STATUS : ADM IN [facility]#: [id number] AGE: 50 ADM/REG DATE : 07/12/16 MR#: [id number] REPORT SERV DATE: 07/13/16 DICTATED BY: HUSSAIN SOSA DATE: 07/13/16 REPORT STATUS : Draft TRANSCRIBED BY: QUINCY DATE: 07/13/16 CINDY Hussain Sosa M.D. / [id number] CC: Cleveland Garcia MD
[2016-07-12 08:45] LABS: BASOPHILS 0.8 %; BASOPHILS ABSOLUTE 0.08 10/3/uL (0.0-0.16); EOSINOPHILS 0.9 %; EOSINOPHILS ABSOLUTE 0.09 10/3/uL (0.0-0.53); ER CBC TAT 0 Hrs 03 Mins; HEMATOCRIT 41.9 % (36.0-48.0); HEMOGLOBIN 13.9 g/dL (12.0-16.0); LYMPHOCYTES 13.9 %; LYMPHOCYTES ABSOLUTE 1.43 10/3/uL (0.67-4.30); MEAN CORPUS HGB CONC 33.2 g/dL (32.0-36.0); MEAN CORPUSCULAR HEMOGLOB 28.2 pg (26.0-34.0); MEAN PLATELET VOLUME 10.7 fL (9.2-13.0); MONOCYTES 7.2 %; MONOCYTES ABSOLUTE 0.74 10/3/uL (0.21-1.20); NEUTROPHILS 72.2 %; NEUTROPHILS ABSOLUTE 7.46 10/3/uL (2.02-8.40); PLATELET COUNT 179 10/3/uL (150-400); RBC DISTRIBUTION WIDTH 14.5 % (12.0-16.0); RED CELL COUNT 4.93 10/6/uL (4.0-5.6); WHITE BLOOD CELLS 10.3 10/3/uL (4.5-10.5)
[2016-07-12 08:46] LABS: IMMATURE GRANULOCYTES ABSOLUTE 0.52 10/3/uL (0.0-0.11); MANUAL DIFF NO %
[2016-07-12 09:07] LABS: ALBUMIN 3.6 G/DL (3.5-5.0); ALKALINE PHOSPHATASE 945 U/L (45-117); BUN (BLOOD UREA NITROGEN) 8 MG/DL (6-23); CALCIUM, SERUM 9.8 MG/DL (8.5-10.4); CHLORIDE, SERUM 105 MMOL/L (96-112); CO2 (CARBON DIOXIDE) 24 MMOL/L (24-34); CREATININE 0.83 MG/DL (0.55-1.02); GFR AFRICAN AMERICAN 94 ML/MIN (>=60); GFR NON AFRICAN AMERICAN 81 ML/MIN (>=60); GLOBULIN 3.5 G/DL (2.5-4.1); GLUCOSE, SERUM 144 MG/DL (60-99); POTASSIUM, SERUM 3.7 MMOL/L (3.5-5.3); SGOT(AST) 381 U/L (5-40); SGPT(ALT) 1152 U/L (5-65); SODIUM, SERUM 139 MMOL/L (135-148); TOTAL BILIRUBIN 2.8 MG/DL (0-1.2); TOTAL PROTEIN 7.1 G/DL (6.0-8.5)
[2016-07-12 09:15] LABS: BAND NEUTROPHILS 29 %; EOSINOPHILS 2 %; EOSINOPHILS ABSOLUTE (CALC) 0.21 10/3/uL (0.0-0.53); ER DIFF TAT 0 Hrs 33 Mins; IMMATURE GRANS ABSOLUTE (CALC) 0.62 10/3/uL (0.0-0.11); LYMPHOCYTES 12 %; LYMPHOCYTES ABSOLUTE (CALC) 1.24 10/3/uL (0.67-4.30); METAMYELOCYTES 5 %; MONOCYTES 5 %; MONOCYTES ABSOLUTE (CALC) 0.52 10/3/uL (0.21-1.20); MYELOCYTES 1 %; NEUTROPHILS ABSOLUTE (CALC) 7.73 10/3/uL (2.02-8.40); PLATELET ESTIMATE ADQ (ADEQUATE); POIKILOCYTOSIS 1+ (5-10/OIF) (0-5/OIF); SEGMENTED NEUTROPHIL (0) 46 %; TEARDROP SHAPED RBCS OCC (0-2/OIF); TOTAL NUCLEATED CELLS 100
[2016-07-12] MEDS ORDERED: PR25 PO (12:40)
[2016-07-12] MEDS ORDERED: K500 PO (12:42)
[2016-07-12] MEDS ORDERED: OXYCON10 PO (12:43)
[2016-07-12 22:32] LABS: ASCORBIC ACID (UR NOT ORDER) NEG (NEG); BILIRUBIN, URINE SMALL (NEG); KETONE, URINE 20 MG/DL (NEG); LEUKOCYTE ESTERASE(NOT OR LARGE (NEG); WBC (NOT ORDERED) (RFLEX) > 182 (0-5)
[2016-07-13 06:38] LABS: HEMOGLOBIN 11.6 g/dL (12.0-16.0); MEAN CORPUS HGB CONC 32.5 g/dL (32.0-36.0); MEAN CORPUSCULAR HEMOGLOB 27.8 pg (26.0-34.0); MEAN CORPUSCULAR VOLUME 85.4 fL (80-100); MEAN PLATELET VOLUME 11.3 fL (9.2-13.0); NUCLEATED RED BLOOD CELLS 0.3 /100WBC (0-0); PLATELET COUNT 140 10/3/uL (150-400); RED CELL COUNT 4.18 10/6/uL (4.0-5.6); WHITE BLOOD CELLS 6.8 10/3/uL (4.5-10.5)
[2016-07-13 06:39] LABS: HEMATOCRIT 35.7 % (36.0-48.0)
[2016-07-13 06:40] LABS: MANUAL DIFF YES %
[2016-07-13 06:45] LABS: ALKALINE PHOSPHATASE 749 U/L (45-117); BUN (BLOOD UREA NITROGEN) 4 MG/DL (6-23); CALCIUM, SERUM 8.8 MG/DL (8.5-10.4); CHLORIDE, SERUM 106 MMOL/L (96-112); CHOL/HDL RATIO(NOT ORDER) 6.8 (0-5); CHOLESTEROL 184 MG/DL (< 200); CO2 (CARBON DIOXIDE) 29 MMOL/L (24-34); CREATININE 0.77 MG/DL (0.55-1.02); DIRECT BILIRUBIN 2.4 MG/DL (0.0-0.4); GAMMA GT 477 U/L (5-85); GFR AFRICAN AMERICAN 103 ML/MIN (>=60); GFR NON AFRICAN AMERICAN 89 ML/MIN (>=60); GLOBULIN 2.9 G/DL (2.5-4.1); GLUCOSE, SERUM 120 MG/DL (60-99); HDL CHOLESTEROL 27 MG/DL (> 49); INDIRECT BILIRUBIN(NOT ORDER) 0.7 MG/DL (0.1-0.9); LDL CHOLESTEROL 118 MG/DL (< 130); NON-HDL CHOLESTEROL 157 MG/DL (< 160); POTASSIUM, SERUM 3.7 MMOL/L (3.5-5.3); SGOT(AST) 138 U/L (5-40); SGPT(ALT) 665 U/L (5-65); SODIUM, SERUM 142 MMOL/L (135-148); TOTAL BILIRUBIN 3.1 MG/DL (0-1.2); TOTAL PROTEIN 5.9 G/DL (6.0-8.5); TRIGLYCERIDE 199 MG/DL (< 150)
[2016-07-13 07:41] LABS: BAND NEUTROPHILS 4 %; LYMPHOCYTES 14 %; LYMPHOCYTES ABSOLUTE (CALC) 0.95 10/3/uL (0.67-4.30); MONOCYTES 10 %; MONOCYTES ABSOLUTE (CALC) 0.68 10/3/uL (0.21-1.20); NEUTROPHILS ABSOLUTE (CALC) 5.17 10/3/uL (2.02-8.40); PLATELET ESTIMATE SLT DEC (ADEQUATE); RBC MORPHOLOGY NORM (NORMAL); SEGMENTED NEUTROPHIL (0) 72 %; TOTAL NUCLEATED CELLS 100
[2016-07-13 12:58] LABS: HEPATITIS B SURFACE ANTIGEN NON-REACTIVE (NON-REACT)
[2016-07-13 13:25] LABS: HEPATITIS C ANTIBODY NON-REACTIVE (NON-REACT)
[2016-07-13 13:26] LABS: HEPATITIS B CORE AB IGM NON-REACTIVE (NON-REAC)
[2016-07-13 13:27] LABS: HEP A ANTIBODY IGM NON-REACTIVE (NON-REACT)
[2016-07-14 05:25] LABS: HEMATOCRIT 36.5 % (36.0-48.0); HEMOGLOBIN 11.9 g/dL (12.0-16.0); MEAN CORPUS HGB CONC 32.6 g/dL (32.0-36.0); MEAN CORPUSCULAR HEMOGLOB 27.7 pg (26.0-34.0); MEAN CORPUSCULAR VOLUME 85.1 fL (80-100); MEAN PLATELET VOLUME 10.6 fL (9.2-13.0); NUCLEATED RED BLOOD CELLS 0.6 /100WBC (0-0); PLATELET COUNT 137 10/3/uL (150-400); RED CELL COUNT 4.29 10/6/uL (4.0-5.6); WHITE BLOOD CELLS 8.6 10/3/uL (4.5-10.5)
[2016-07-14 05:26] LABS: MANUAL DIFF YES %
[2016-07-14 05:29] LABS: PROTIME (NOT ORD) 13.3 SEC (12.0-14.5)
[2016-07-14 05:35] LABS: BUN (BLOOD UREA NITROGEN) 3 MG/DL (6-23); CALCIUM, SERUM 9.1 MG/DL (8.5-10.4); CHLORIDE, SERUM 108 MMOL/L (96-112); CREATININE 0.74 MG/DL (0.55-1.02); GFR AFRICAN AMERICAN 108 ML/MIN (>=60); GFR NON AFRICAN AMERICAN 93 ML/MIN (>=60); POTASSIUM, SERUM 3.5 MMOL/L (3.5-5.3); SODIUM, SERUM 143 MMOL/L (135-148)
[2016-07-14 05:40] LABS: CO2 (CARBON DIOXIDE) 24 MMOL/L (24-34); GLUCOSE, SERUM 87 MG/DL (60-99)
[2016-07-14 05:51] LABS: BAND NEUTROPHILS 5 %; EOSINOPHILS 4 %; EOSINOPHILS ABSOLUTE (CALC) 0.34 10/3/uL (0.0-0.53); LYMPHOCYTES 16 %; LYMPHOCYTES ABSOLUTE (CALC) 1.38 10/3/uL (0.67-4.30); MONOCYTES 9 %; MONOCYTES ABSOLUTE (CALC) 0.77 10/3/uL (0.21-1.20); TOTAL NUCLEATED CELLS 100
[2016-07-14 05:52] LABS: METAMYELOCYTES 1 %; MYELOCYTES 2 %; PLATELET ESTIMATE SLT DEC (ADEQUATE); RBC MORPHOLOGY NORM (NORMAL); SEGMENTED NEUTROPHIL (0) 63 %
[2016-07-14 09:44] LABS: DIRECT BILIRUBIN 2.3 MG/DL (0.0-0.4); INDIRECT BILIRUBIN(NOT ORDER) 0.9 MG/DL (0.1-0.9); SGOT(AST) 122 U/L (5-40); SGPT(ALT) 517 U/L (5-65); TOTAL BILIRUBIN 3.2 MG/DL (0-1.2); TOTAL PROTEIN 5.8 G/DL (6.0-8.5)
[2016-07-14 09:45] LABS: ALKALINE PHOSPHATASE 662 U/L (45-117)
[2016-07-14 10:10] LABS: ALPHA FETOPROTEIN (TUMOR) 8.3 NG/ML (< 8.0); CA-19-9 13.3 U/ML (< 37.0)
[2016-07-14 12:30] LABS: EB VCA AB IGG Equivocal (Negative); EB VCA AB IGM Negative (Negative); EBV NUCLEAR AB IGG Positive (Negative)
[2016-07-15 06:36] LABS: HEMATOCRIT 35.6 % (36.0-48.0); HEMOGLOBIN 11.8 g/dL (12.0-16.0); MEAN CORPUS HGB CONC 33.1 g/dL (32.0-36.0); MEAN CORPUSCULAR HEMOGLOB 27.8 pg (26.0-34.0); MEAN CORPUSCULAR VOLUME 83.8 fL (80-100); PLATELET COUNT 139 10/3/uL (150-400); RBC DISTRIBUTION WIDTH 15.4 % (12.0-16.0); RED CELL COUNT 4.25 10/6/uL (4.0-5.6); WHITE BLOOD CELLS 9.6 10/3/uL (4.5-10.5)
[2016-07-15 06:38] LABS: MANUAL DIFF YES %
[2016-07-15 06:52] LABS: ALBUMIN 2.8 G/DL (3.5-5.0); ALKALINE PHOSPHATASE 627 U/L (45-117); BUN (BLOOD UREA NITROGEN) 2 MG/DL (6-23); CALCIUM, SERUM 9.1 MG/DL (8.5-10.4); CHLORIDE, SERUM 111 MMOL/L (96-112); CO2 (CARBON DIOXIDE) 25 MMOL/L (24-34); CREATININE 0.77 MG/DL (0.55-1.02); DIRECT BILIRUBIN 2.7 MG/DL (0.0-0.4); GFR AFRICAN AMERICAN 103 ML/MIN (>=60); GFR NON AFRICAN AMERICAN 89 ML/MIN (>=60); GLOBULIN 2.9 G/DL (2.5-4.1); GLUCOSE, SERUM 109 MG/DL (60-99); INDIRECT BILIRUBIN(NOT ORDER) 0.9 MG/DL (0.1-0.9); POTASSIUM, SERUM 3.4 MMOL/L (3.5-5.3); SGOT(AST) 125 U/L (5-40); SGPT(ALT) 417 U/L (5-65); SODIUM, SERUM 145 MMOL/L (135-148); TOTAL BILIRUBIN 3.6 MG/DL (0-1.2); TOTAL PROTEIN 5.7 G/DL (6.0-8.5)
[2016-07-15 07:34] LABS: BAND NEUTROPHILS 11 %; BASOPHILS 1 %; IMMATURE GRANS ABSOLUTE (CALC) 0.86 10/3/uL (0.0-0.11); LYMPHOCYTES 10 %; LYMPHOCYTES ABSOLUTE (CALC) 0.96 10/3/uL (0.67-4.30); METAMYELOCYTES 5 %; MYELOCYTES 3 %; NEUTROPHILS ABSOLUTE (CALC) 7.68 10/3/uL (2.02-8.40); PLATELET ESTIMATE SLT DEC (ADEQUATE); PROMYELOCYTES 1 % (0); RBC MORPHOLOGY NORM (NORMAL); SEGMENTED NEUTROPHIL (0) 69 %; TOTAL NUCLEATED CELLS 100
[2016-07-16 06:59] LABS: HEMATOCRIT 38.1 % (36.0-48.0); HEMOGLOBIN 12.5 g/dL (12.0-16.0); MEAN CORPUS HGB CONC 32.8 g/dL (32.0-36.0); MEAN CORPUSCULAR VOLUME 85.2 fL (80-100); PLATELET COUNT 166 10/3/uL (150-400); RBC DISTRIBUTION WIDTH 15.3 % (12.0-16.0); RED CELL COUNT 4.47 10/6/uL (4.0-5.6); WHITE BLOOD CELLS 12.3 10/3/uL (4.5-10.5)
[2016-07-16 07:10] LABS: MANUAL DIFF YES %
[2016-07-16 07:19] LABS: A/G RATIO 0.9 (0.7-1.9); ALBUMIN 2.9 G/DL (3.5-5.0); BUN (BLOOD UREA NITROGEN) 4 MG/DL (6-23); CALCIUM, SERUM 9.3 MG/DL (8.5-10.4); CHLORIDE, SERUM 107 MMOL/L (96-112); CO2 (CARBON DIOXIDE) 28 MMOL/L (24-34); CREATININE 0.85 MG/DL (0.55-1.02); GFR AFRICAN AMERICAN 91 ML/MIN (>=60); GFR NON AFRICAN AMERICAN 79 ML/MIN (>=60); GLOBULIN 3.1 G/DL (2.5-4.1); POTASSIUM, SERUM 3.7 MMOL/L (3.5-5.3); SGOT(AST) 104 U/L (5-40); SGPT(ALT) 382 U/L (5-65); SODIUM, SERUM 141 MMOL/L (135-148)
[2016-07-16 07:20] LABS: ALKALINE PHOSPHATASE 612 U/L (45-117); GLUCOSE, SERUM 139 MG/DL (60-99); TOTAL BILIRUBIN 4.4 MG/DL (0-1.2)
[2016-07-16 08:17] LABS: BAND NEUTROPHILS 18 %; EOSINOPHILS 1 %; EOSINOPHILS ABSOLUTE (CALC) 0.12 10/3/uL (0.0-0.53); IMMATURE GRANS ABSOLUTE (CALC) 1.48 10/3/uL (0.0-0.11); LYMPHOCYTES 18 %; LYMPHOCYTES ABSOLUTE (CALC) 2.21 10/3/uL (0.67-4.30); METAMYELOCYTES 7 %; MONOCYTES 8 %; MONOCYTES ABSOLUTE (CALC) 0.98 10/3/uL (0.21-1.20); MYELOCYTES 4 %; PROMYELOCYTES 1 % (0); SEGMENTED NEUTROPHIL (0) 43 %; TOTAL NUCLEATED CELLS 100; TOXIC GRANULATION 1+
[2016-07-16 08:18] LABS: PLATELET ESTIMATE ADQ (ADEQUATE); POLYCHROMASIA 1+ (2-5/OIF) (0-1/OIF); TEARDROP SHAPED RBCS OCC (0-2/OIF); VACUOLATED NEUTROPHILES OCC
[2016-07-17 06:11] LABS: HEMATOCRIT 37.1 % (36.0-48.0); HEMOGLOBIN 12.1 g/dL (12.0-16.0); MEAN CORPUS HGB CONC 32.6 g/dL (32.0-36.0); MEAN CORPUSCULAR HEMOGLOB 27.4 pg (26.0-34.0); MEAN CORPUSCULAR VOLUME 84.1 fL (80-100); MEAN PLATELET VOLUME 11.3 fL (9.2-13.0); PLATELET COUNT 160 10/3/uL (150-400); RBC DISTRIBUTION WIDTH 15.6 % (12.0-16.0); RED CELL COUNT 4.41 10/6/uL (4.0-5.6)
[2016-07-17 06:13] LABS: MANUAL DIFF YES %
[2016-07-17 06:30] LABS: A/G RATIO 0.9 (0.7-1.9); ALBUMIN 2.9 G/DL (3.5-5.0); ALKALINE PHOSPHATASE 614 U/L (45-117); BUN (BLOOD UREA NITROGEN) 7 MG/DL (6-23); CALCIUM, SERUM 9.4 MG/DL (8.5-10.4); CHLORIDE, SERUM 108 MMOL/L (96-112); CREATININE 0.89 MG/DL (0.55-1.02); GFR AFRICAN AMERICAN 86 ML/MIN (>=60); GFR NON AFRICAN AMERICAN 75 ML/MIN (>=60); GLOBULIN 3.3 G/DL (2.5-4.1); GLUCOSE, SERUM 142 MG/DL (60-99); POTASSIUM, SERUM 3.2 MMOL/L (3.5-5.3); SGOT(AST) 145 U/L (5-40); SGPT(ALT) 378 U/L (5-65); SODIUM, SERUM 140 MMOL/L (135-148); TOTAL PROTEIN 6.2 G/DL (6.0-8.5)
[2016-07-17 06:31] LABS: CO2 (CARBON DIOXIDE) 23 MMOL/L (24-34); TOTAL BILIRUBIN 3.8 MG/DL (0-1.2)
[2016-07-17 08:39] LABS: BAND NEUTROPHILS 22 %; EOSINOPHILS 2 %; LYMPHOCYTES 27 %; LYMPHOCYTES ABSOLUTE (CALC) 4.05 10/3/uL (0.67-4.30); METAMYELOCYTES 6 %; MONOCYTES 6 %; MYELOCYTES 6 %; NEUTROPHILS ABSOLUTE (CALC) 7.65 10/3/uL (2.02-8.40); NUCLEATED RED BLOOD CELLS 2 /100WBC (0); PROMYELOCYTES 2 % (0); SEGMENTED NEUTROPHIL (0) 29 %; TOTAL NUCLEATED CELLS 100
[2016-07-17 08:40] LABS: PLATELET ESTIMATE ADQ (ADEQUATE)
[2016-07-17 08:41] LABS: RBC MORPHOLOGY NORM (NORMAL)
[2016-07-17 08:42] LABS: REACTIVE LYMPHS FEW (3-5%) (0-5%)
[2016-07-18 05:38] LABS: HEMATOCRIT 35.7 % (36.0-48.0); HEMOGLOBIN 11.6 g/dL (12.0-16.0); MEAN CORPUS HGB CONC 32.5 g/dL (32.0-36.0); MEAN CORPUSCULAR HEMOGLOB 27.6 pg (26.0-34.0); MEAN PLATELET VOLUME 11.5 fL (9.2-13.0); PLATELET COUNT 151 10/3/uL (150-400); RBC DISTRIBUTION WIDTH 15.9 % (12.0-16.0); WHITE BLOOD CELLS 14.9 10/3/uL (4.5-10.5)
[2016-07-18 05:40] LABS: MANUAL DIFF YES %
[2016-07-18 05:53] LABS: A/G RATIO 0.9 (0.7-1.9); ALBUMIN 2.9 G/DL (3.5-5.0); ALKALINE PHOSPHATASE 559 U/L (45-117); BUN (BLOOD UREA NITROGEN) 8 MG/DL (6-23); CALCIUM, SERUM 9.1 MG/DL (8.5-10.4); CHLORIDE, SERUM 109 MMOL/L (96-112); CO2 (CARBON DIOXIDE) 25 MMOL/L (24-34); CREATININE 0.84 MG/DL (0.55-1.02); GFR AFRICAN AMERICAN 93 ML/MIN (>=60); GFR NON AFRICAN AMERICAN 80 ML/MIN (>=60); GLOBULIN 3.3 G/DL (2.5-4.1); GLUCOSE, SERUM 116 MG/DL (60-99); POTASSIUM, SERUM 3.7 MMOL/L (3.5-5.3); SGPT(ALT) 408 U/L (5-65); SODIUM, SERUM 141 MMOL/L (135-148); TOTAL BILIRUBIN 3.2 MG/DL (0-1.2); TOTAL PROTEIN 6.2 G/DL (6.0-8.5)
[2016-07-18 05:54] LABS: SGOT(AST) 173 U/L (5-40)
[2016-07-18 06:08] LABS: BAND NEUTROPHILS 16 %; EOSINOPHILS 1 %; EOSINOPHILS ABSOLUTE (CALC) 0.15 10/3/uL (0.0-0.53); IMMATURE GRANS ABSOLUTE (CALC) 0.75 10/3/uL (0.0-0.11); LYMPHOCYTES 26 %; LYMPHOCYTES ABSOLUTE (CALC) 3.87 10/3/uL (0.67-4.30); METAMYELOCYTES 1 %; MONOCYTES 6 %; MONOCYTES ABSOLUTE (CALC) 0.89 10/3/uL (0.21-1.20); MYELOCYTES 4 %; NEUTROPHILS ABSOLUTE (CALC) 9.24 10/3/uL (2.02-8.40); PLATELET ESTIMATE ADQ (ADEQUATE); RBC MORPHOLOGY NORM (NORMAL); SEGMENTED NEUTROPHIL (0) 46 %; TOTAL NUCLEATED CELLS 100
[2016-07-19 05:33] LABS: BASOPHILS 3.1 %; BASOPHILS ABSOLUTE 0.58 10/3/uL (0.0-0.16); EOSINOPHILS 1.2 %; EOSINOPHILS ABSOLUTE 0.23 10/3/uL (0.0-0.53); HEMATOCRIT 38.2 % (36.0-48.0); HEMOGLOBIN 12.4 g/dL (12.0-16.0); IMMATURE GRANULOCYTES 7.1 %; IMMATURE GRANULOCYTES ABSOLUTE 1.31 10/3/uL (0.0-0.11); LYMPHOCYTES 38.5 %; MEAN CORPUS HGB CONC 32.5 g/dL (32.0-36.0); MEAN CORPUSCULAR HEMOGLOB 27.6 pg (26.0-34.0); MEAN CORPUSCULAR VOLUME 84.9 fL (80-100); MEAN PLATELET VOLUME 11.5 fL (9.2-13.0); MONOCYTES 9.8 %; MONOCYTES ABSOLUTE 1.81 10/3/uL (0.21-1.20); NEUTROPHILS 40.3 %; NEUTROPHILS ABSOLUTE 7.43 10/3/uL (2.02-8.40); PLATELET COUNT 150 10/3/uL (150-400); WHITE BLOOD CELLS 18.5 10/3/uL (4.5-10.5)
[2016-07-19 05:35] LABS: MANUAL DIFF NO %
[2016-07-19 05:42] LABS: A/G RATIO 0.9 (0.7-1.9); BUN (BLOOD UREA NITROGEN) 9 MG/DL (6-23); CALCIUM, SERUM 9.6 MG/DL (8.5-10.4); CHLORIDE, SERUM 107 MMOL/L (96-112); CO2 (CARBON DIOXIDE) 25 MMOL/L (24-34); CREATININE 0.79 MG/DL (0.55-1.02); GFR AFRICAN AMERICAN 100 ML/MIN (>=60); GFR NON AFRICAN AMERICAN 86 ML/MIN (>=60); GLOBULIN 3.3 G/DL (2.5-4.1); POTASSIUM, SERUM 3.6 MMOL/L (3.5-5.3); SGOT(AST) 165 U/L (5-40); SGPT(ALT) 431 U/L (5-65); SODIUM, SERUM 141 MMOL/L (135-148); TOTAL BILIRUBIN 2.8 MG/DL (0-1.2); TOTAL PROTEIN 6.3 G/DL (6.0-8.5)
[2016-07-19 05:43] LABS: ALKALINE PHOSPHATASE 587 U/L (45-117); DIRECT BILIRUBIN 1.8 MG/DL (0.0-0.4); GLUCOSE, SERUM 89 MG/DL (60-99)
[2016-07-19 07:08] LABS: BAND NEUTROPHILS 17 %; IMMATURE GRANS ABSOLUTE (CALC) 1.85 10/3/uL (0.0-0.11); LYMPHOCYTES 41 %; LYMPHOCYTES ABSOLUTE (CALC) 7.59 10/3/uL (0.67-4.30); METAMYELOCYTES 4 %; MONOCYTES 8 %; MONOCYTES ABSOLUTE (CALC) 1.48 10/3/uL (0.21-1.20); MYELOCYTES 6 %; NEUTROPHILS ABSOLUTE (CALC) 7.59 10/3/uL (2.02-8.40); PLATELET ESTIMATE ADQ (ADEQUATE); SEGMENTED NEUTROPHIL (0) 24 %; TOTAL NUCLEATED CELLS 100
[2016-07-19 07:09] LABS: RBC MORPHOLOGY NORM (NORMAL); REACTIVE LYMPHS MOD (6-10%) (0-5%)
[2016-07-19 12:58] LABS: PATH REVIEW YES
[2016-07-19 14:02] LABS: PATH REVIEW SEE PATHOLOGY REPORT
[2016-07-20 04:52] LABS: MEAN CORPUS HGB CONC 32.6 g/dL (32.0-36.0); MEAN CORPUSCULAR HEMOGLOB 27.7 pg (26.0-34.0); MEAN CORPUSCULAR VOLUME 84.9 fL (80-100); MEAN PLATELET VOLUME 11.5 fL (9.2-13.0); PLATELET COUNT 155 10/3/uL (150-400); RBC DISTRIBUTION WIDTH 16.1 % (12.0-16.0); RED CELL COUNT 3.97 10/6/uL (4.0-5.6); WHITE BLOOD CELLS 20.4 10/3/uL (4.5-10.5)
[2016-07-20 04:54] LABS: HEMATOCRIT 33.7 % (36.0-48.0); MANUAL DIFF YES %
[2016-07-20 04:57] LABS: PROTIME (NOT ORD) 13.3 SEC (12.0-14.5)
[2016-07-20 05:04] LABS: ALBUMIN 2.9 G/DL (3.5-5.0); BUN (BLOOD UREA NITROGEN) 10 MG/DL (6-23); CALCIUM, SERUM 9.1 MG/DL (8.5-10.4); CHLORIDE, SERUM 104 MMOL/L (96-112); CO2 (CARBON DIOXIDE) 29 MMOL/L (24-34); CREATININE 0.85 MG/DL (0.55-1.02); GFR AFRICAN AMERICAN 91 ML/MIN (>=60); GFR NON AFRICAN AMERICAN 79 ML/MIN (>=60); PHOSPHORUS, SERUM 4.7 MG/DL (2.5-4.5); POTASSIUM, SERUM 3.9 MMOL/L (3.5-5.3); SGOT(AST) 176 U/L (5-40); SGPT(ALT) 475 U/L (5-65); SODIUM, SERUM 139 MMOL/L (135-148); TOTAL BILIRUBIN 3.1 MG/DL (0-1.2); TOTAL PROTEIN 6.1 G/DL (6.0-8.5)
[2016-07-20 05:06] LABS: ALKALINE PHOSPHATASE 540 U/L (45-117); DIRECT BILIRUBIN 2.2 MG/DL (0.0-0.4); GLUCOSE, SERUM 115 MG/DL (60-99); INDIRECT BILIRUBIN(NOT ORDER) 0.9 MG/DL (0.1-0.9)
[2016-07-20 05:34] LABS: PROCALCITONIN 0.32 ng/mL (<0.5)
[2016-07-20 07:16] LABS: BAND NEUTROPHILS 24 %; EOSINOPHILS 3 %; EOSINOPHILS ABSOLUTE (CALC) 0.61 10/3/uL (0.0-0.53); LYMPHOCYTES 43 %; LYMPHOCYTES ABSOLUTE (CALC) 8.77 10/3/uL (0.67-4.30); METAMYELOCYTES 5 %; MONOCYTES 4 %; MONOCYTES ABSOLUTE (CALC) 0.82 10/3/uL (0.21-1.20); MYELOCYTES 3 %; SEGMENTED NEUTROPHIL (0) 18 %; TOTAL NUCLEATED CELLS 100
[2016-07-20 07:17] LABS: PLATELET ESTIMATE DEC (ADEQUATE); RBC MORPHOLOGY NORM (NORMAL)
[2016-07-20 12:52] LABS: HEMATOCRIT 31.7 % (36.0-48.0); HEMOGLOBIN 10.5 g/dL (12.0-16.0)
[2016-07-21 10:11] LABS: HEMATOCRIT 30.8 % (36.0-48.0); MEAN CORPUS HGB CONC 32.5 g/dL (32.0-36.0); MEAN CORPUSCULAR HEMOGLOB 27.3 pg (26.0-34.0); MEAN CORPUSCULAR VOLUME 84.2 fL (80-100); PLATELET COUNT 121 10/3/uL (150-400); RBC DISTRIBUTION WIDTH 16.6 % (12.0-16.0); RED CELL COUNT 3.66 10/6/uL (4.0-5.6)
[2016-07-21 10:12] LABS: MANUAL DIFF YES %; WHITE BLOOD CELLS 11.3 10/3/uL (4.5-10.5)
[2016-07-21 10:25] LABS: A/G RATIO 0.9 (0.7-1.9); ALBUMIN 2.9 G/DL (3.5-5.0); BUN (BLOOD UREA NITROGEN) 10 MG/DL (6-23); CALCIUM, SERUM 8.7 MG/DL (8.5-10.4); CHLORIDE, SERUM 103 MMOL/L (96-112); CO2 (CARBON DIOXIDE) 27 MMOL/L (24-34); GFR AFRICAN AMERICAN 75 ML/MIN (>=60); GFR NON AFRICAN AMERICAN 65 ML/MIN (>=60); GLOBULIN 3.4 G/DL (2.5-4.1); SGOT(AST) 119 U/L (5-40); SGPT(ALT) 406 U/L (5-65); SODIUM, SERUM 139 MMOL/L (135-148); TOTAL PROTEIN 6.3 G/DL (6.0-8.5)
[2016-07-21 10:27] LABS: ALKALINE PHOSPHATASE 412 U/L (45-117); GLUCOSE, SERUM 188 MG/DL (60-99)
[2016-07-21 10:37] LABS: BAND NEUTROPHILS 21 %; EOSINOPHILS 5 %; EOSINOPHILS ABSOLUTE (CALC) 0.57 10/3/uL (0.0-0.53); IMMATURE GRANS ABSOLUTE (CALC) 0.68 10/3/uL (0.0-0.11); LYMPHOCYTES 31 %; METAMYELOCYTES 4 %; MONOCYTES 6 %; MONOCYTES ABSOLUTE (CALC) 0.68 10/3/uL (0.21-1.20); MYELOCYTES 2 %; NEUTROPHILS ABSOLUTE (CALC) 5.88 10/3/uL (2.02-8.40); PLATELET ESTIMATE SLT DEC (ADEQUATE); POIKILOCYTOSIS 1+ (5-10/OIF) (0-5/OIF); SCHISTOCYTES OCC (0-2/OIF); SEGMENTED NEUTROPHIL (0) 31 %; TOTAL NUCLEATED CELLS 100
[2016-07-21 10:38] LABS: GIANT PLATELET RARE; POLYCHROMASIA 1+ (2-5/OIF) (0-1/OIF); REACTIVE LYMPHS FEW (3-5%) (0-5%)
[2016-07-22 06:31] LABS: HEMATOCRIT 28.3 % (36.0-48.0); HEMOGLOBIN 9.1 g/dL (12.0-16.0); MEAN CORPUS HGB CONC 32.2 g/dL (32.0-36.0); MEAN CORPUSCULAR HEMOGLOB 27.5 pg (26.0-34.0); MEAN CORPUSCULAR VOLUME 85.5 fL (80-100); MEAN PLATELET VOLUME 11.8 fL (9.2-13.0); PLATELET COUNT 109 10/3/uL (150-400); RBC DISTRIBUTION WIDTH 16.6 % (12.0-16.0); RED CELL COUNT 3.31 10/6/uL (4.0-5.6); WHITE BLOOD CELLS 8.6 10/3/uL (4.5-10.5)
[2016-07-22 06:37] LABS: MANUAL DIFF YES %
[2016-07-22 06:46] LABS: A/G RATIO 0.8 (0.7-1.9); ALBUMIN 2.7 G/DL (3.5-5.0); BUN (BLOOD UREA NITROGEN) 10 MG/DL (6-23); CALCIUM, SERUM 8.9 MG/DL (8.5-10.4); CHLORIDE, SERUM 106 MMOL/L (96-112); CO2 (CARBON DIOXIDE) 26 MMOL/L (24-34); GFR AFRICAN AMERICAN 98 ML/MIN (>=60); GFR NON AFRICAN AMERICAN 85 ML/MIN (>=60); GLOBULIN 3.5 G/DL (2.5-4.1); POTASSIUM, SERUM 3.6 MMOL/L (3.5-5.3); SGOT(AST) 67 U/L (5-40); SGPT(ALT) 292 U/L (5-65); SODIUM, SERUM 142 MMOL/L (135-148); TOTAL BILIRUBIN 2.9 MG/DL (0-1.2); TOTAL PROTEIN 6.2 G/DL (6.0-8.5)
[2016-07-22 06:48] LABS: ALKALINE PHOSPHATASE 357 U/L (45-117); GLUCOSE, SERUM 119 MG/DL (60-99)
[2016-07-22 07:34] LABS: BAND NEUTROPHILS 23 %; EOSINOPHILS 1 %; EOSINOPHILS ABSOLUTE (CALC) 0.09 10/3/uL (0.0-0.53); IMMATURE GRANS ABSOLUTE (CALC) 0.43 10/3/uL (0.0-0.11); LYMPHOCYTES 32 %; LYMPHOCYTES ABSOLUTE (CALC) 2.75 10/3/uL (0.67-4.30); METAMYELOCYTES 4 %; MONOCYTES 5 %; MONOCYTES ABSOLUTE (CALC) 0.43 10/3/uL (0.21-1.20); MYELOCYTES 1 %; SEGMENTED NEUTROPHIL (0) 34 %; TOTAL NUCLEATED CELLS 100
[2016-07-22 07:35] LABS: PLATELET ESTIMATE SLT DEC (ADEQUATE); RBC MORPHOLOGY NORM (NORMAL)
[2016-07-22 08:12] LABS: RETICULOCYTE COUNT 1.5 % (0.5-2.9); RETICULOCYTE COUNT ABSOLUTE 48.1 10/3/uL (20.2-119.8)
[2016-07-23 06:08] LABS: HEMOGLOBIN 9.9 g/dL (12.0-16.0); MEAN CORPUSCULAR HEMOGLOB 27.4 pg (26.0-34.0); MEAN CORPUSCULAR VOLUME 83.1 fL (80-100); MEAN PLATELET VOLUME 11.1 fL (9.2-13.0); PLATELET COUNT 112 10/3/uL (150-400); RBC DISTRIBUTION WIDTH 16.5 % (12.0-16.0); RED CELL COUNT 3.61 10/6/uL (4.0-5.6); WHITE BLOOD CELLS 7.9 10/3/uL (4.5-10.5)
[2016-07-23 06:09] LABS: MANUAL DIFF YES %
[2016-07-23 06:20] LABS: A/G RATIO 0.7 (0.7-1.9); ALBUMIN 2.9 G/DL (3.5-5.0); CALCIUM, SERUM 9.4 MG/DL (8.5-10.4); CHLORIDE, SERUM 106 MMOL/L (96-112); CO2 (CARBON DIOXIDE) 26 MMOL/L (24-34); CREATININE 0.83 MG/DL (0.55-1.02); GFR AFRICAN AMERICAN 94 ML/MIN (>=60); GFR NON AFRICAN AMERICAN 81 ML/MIN (>=60); GLOBULIN 4.1 G/DL (2.5-4.1); POTASSIUM, SERUM 4.2 MMOL/L (3.5-5.3); SGOT(AST) 51 U/L (5-40); SGPT(ALT) 240 U/L (5-65); SODIUM, SERUM 141 MMOL/L (135-148)
[2016-07-23 06:22] LABS: ALKALINE PHOSPHATASE 377 U/L (45-117); BUN (BLOOD UREA NITROGEN) 15 MG/DL (6-23); DIRECT BILIRUBIN 3.1 MG/DL (0.0-0.4); GLUCOSE, SERUM 189 MG/DL (60-99); INDIRECT BILIRUBIN(NOT ORDER) 0.7 MG/DL (0.1-0.9); TOTAL BILIRUBIN 3.8 MG/DL (0-1.2)
[2016-07-23 06:28] LABS: PHOSPHORUS, SERUM 3.5 MG/DL (2.5-4.5)
[2016-07-23 06:38] LABS: BAND NEUTROPHILS 27 %; BASOPHILS 1 %; BASOPHILS ABSOLUTE (CALC) 0.08 10/3/uL (0.0-0.16); EOSINOPHILS 2 %; EOSINOPHILS ABSOLUTE (CALC) 0.16 10/3/uL (0.0-0.53); IMMATURE GRANS ABSOLUTE (CALC) 0.32 10/3/uL (0.0-0.11); LYMPHOCYTES 21 %; LYMPHOCYTES ABSOLUTE (CALC) 1.66 10/3/uL (0.67-4.30); METAMYELOCYTES 3 %; MONOCYTES 10 %; MONOCYTES ABSOLUTE (CALC) 0.79 10/3/uL (0.21-1.20); MYELOCYTES 1 %; SEGMENTED NEUTROPHIL (0) 35 %; TOTAL NUCLEATED CELLS 100
[2016-07-23 06:39] LABS: PLATELET ESTIMATE SLT DEC (ADEQUATE)
[2016-07-23 06:40] LABS: RBC MORPHOLOGY NORM (NORMAL)
[2016-07-24 06:24] LABS: HEMATOCRIT 28.4 % (36.0-48.0); HEMOGLOBIN 9.2 g/dL (12.0-16.0); MEAN CORPUS HGB CONC 32.4 g/dL (32.0-36.0); MEAN CORPUSCULAR HEMOGLOB 27.2 pg (26.0-34.0); MEAN PLATELET VOLUME 11.2 fL (9.2-13.0); NUCLEATED RED BLOOD CELLS 0.6 /100WBC (0-0); RBC DISTRIBUTION WIDTH 16.2 % (12.0-16.0); RED CELL COUNT 3.38 10/6/uL (4.0-5.6); WHITE BLOOD CELLS 6.8 10/3/uL (4.5-10.5)
[2016-07-24 06:26] LABS: MANUAL DIFF YES %; PLATELET COUNT 73 10/3/uL (150-400)
[2016-07-24 06:34] LABS: A/G RATIO 0.8 (0.7-1.9); ALBUMIN 2.6 G/DL (3.5-5.0); ALKALINE PHOSPHATASE 343 U/L (45-117); BUN (BLOOD UREA NITROGEN) 21 MG/DL (6-23); CALCIUM, SERUM 8.8 MG/DL (8.5-10.4); CHLORIDE, SERUM 109 MMOL/L (96-112); CO2 (CARBON DIOXIDE) 26 MMOL/L (24-34); GFR AFRICAN AMERICAN 98 ML/MIN (>=60); GFR NON AFRICAN AMERICAN 85 ML/MIN (>=60); GLOBULIN 3.4 G/DL (2.5-4.1); GLUCOSE, SERUM 258 MG/DL (60-99); PHOSPHORUS, SERUM 4.5 MG/DL (2.5-4.5); POTASSIUM, SERUM 4.4 MMOL/L (3.5-5.3); SGOT(AST) 46 U/L (5-40); SGPT(ALT) 190 U/L (5-65); SODIUM, SERUM 141 MMOL/L (135-148); TOTAL BILIRUBIN 4.5 MG/DL (0-1.2)
[2016-07-24 07:33] LABS: BAND NEUTROPHILS 37 %; IMMATURE GRANS ABSOLUTE (CALC) 0.27 10/3/uL (0.0-0.11); LYMPHOCYTES 21 %; LYMPHOCYTES ABSOLUTE (CALC) 1.43 10/3/uL (0.67-4.30); METAMYELOCYTES 2 %; MONOCYTES 6 %; MONOCYTES ABSOLUTE (CALC) 0.41 10/3/uL (0.21-1.20); MYELOCYTES 2 %; NEUTROPHILS ABSOLUTE (CALC) 4.69 10/3/uL (2.02-8.40); PLATELET ESTIMATE DEC (ADEQUATE); SEGMENTED NEUTROPHIL (0) 32 %; TOTAL NUCLEATED CELLS 100; TOXIC GRANULATION 1+
[2016-07-24 07:34] LABS: HELMET CELLS OCC (0-2/OIF); MICROCYTES 1+ (5-10/OIF) (0-5/OIF); TEARDROP SHAPED RBCS OCC (0-2/OIF)
[2016-07-25 05:19] LABS: BASOPHILS 0.4 %; BASOPHILS ABSOLUTE 0.01 10/3/uL (0.0-0.16); EOSINOPHILS 0 %; HEMATOCRIT 26.4 % (36.0-48.0); HEMOGLOBIN 8.8 g/dL (12.0-16.0); IMMATURE GRANULOCYTES 0.9 %; IMMATURE GRANULOCYTES ABSOLUTE 0.02 10/3/uL (0.0-0.11); LYMPHOCYTES 10.5 %; LYMPHOCYTES ABSOLUTE 0.24 10/3/uL (0.67-4.30); MEAN CORPUS HGB CONC 33.3 g/dL (32.0-36.0); MEAN CORPUSCULAR HEMOGLOB 27.6 pg (26.0-34.0); MEAN CORPUSCULAR VOLUME 82.8 fL (80-100); MONOCYTES 2.6 %; MONOCYTES ABSOLUTE 0.06 10/3/uL (0.21-1.20); NEUTROPHILS 85.6 %; NEUTROPHILS ABSOLUTE 1.96 10/3/uL (2.02-8.40); RBC DISTRIBUTION WIDTH 16.5 % (12.0-16.0); RED CELL COUNT 3.19 10/6/uL (4.0-5.6)
[2016-07-25 05:20] LABS: MANUAL DIFF NO %; PLATELET COUNT 51 10/3/uL (150-400); WHITE BLOOD CELLS 2.3 10/3/uL (4.5-10.5)
[2016-07-25 05:37] LABS: A/G RATIO 0.7 (0.7-1.9); ALBUMIN 2.4 G/DL (3.5-5.0); BUN (BLOOD UREA NITROGEN) 21 MG/DL (6-23); CALCIUM, SERUM 8.6 MG/DL (8.5-10.4); CHLORIDE, SERUM 104 MMOL/L (96-112); CO2 (CARBON DIOXIDE) 26 MMOL/L (24-34); CREATININE 0.71 MG/DL (0.55-1.02); GFR AFRICAN AMERICAN 114 ML/MIN (>=60); GFR NON AFRICAN AMERICAN 98 ML/MIN (>=60); GLOBULIN 3.3 G/DL (2.5-4.1); GLUCOSE, SERUM 228 MG/DL (60-99); POTASSIUM, SERUM 4.5 MMOL/L (3.5-5.3); SGOT(AST) 7 U/L (5-40); SGPT(ALT) 113 U/L (5-65); SODIUM, SERUM 136 MMOL/L (135-148); TOTAL PROTEIN 5.7 G/DL (6.0-8.5)
[2016-07-25 05:38] LABS: ALKALINE PHOSPHATASE 235 U/L (45-117); TOTAL BILIRUBIN 3.8 MG/DL (0-1.2)
[2016-07-25 05:49] LABS: PLATELET ESTIMATE DEC (ADEQUATE); TEARDROP SHAPED RBCS FEW (3-10/OIF)
[2016-07-25 15:50] LABS: TOTAL PROTEIN, CSF 30.2 MG/DL (15-45)
[2016-07-25 16:46] LABS: CSF APPEARANCE (NOT ORD) CLEAR (CLEAR); CSF BASO 0 % (NO REF RANGE); CSF COLOR (NOT ORD) COLORLESS (COLORLESS); CSF EOS 0 % (0-1); CSF LYMPH (NOT ORD) 69 % (28-96); CSF MONO 31 % (16-56); CSF RBC (NOT ORD) 0 MM3 (NO REFERENCE); CSF SEGS (NOT ORD) 0 % (0-7); CSF WBC (NOT ORD) 5 /uL (0-10); CSF XANTHROCHROMIA NEG (NEG)
[2016-07-26 04:52] LABS: BASOPHILS 0 %; EOSINOPHILS 0.5 %; EOSINOPHILS ABSOLUTE 0.01 10/3/uL (0.0-0.53); HEMATOCRIT 24.2 % (36.0-48.0); HEMOGLOBIN 8.1 g/dL (12.0-16.0); IMMATURE GRANULOCYTES 0.5 %; IMMATURE GRANULOCYTES ABSOLUTE 0.01 10/3/uL (0.0-0.11); LYMPHOCYTES 6.5 %; LYMPHOCYTES ABSOLUTE 0.13 10/3/uL (0.67-4.30); MEAN CORPUS HGB CONC 33.5 g/dL (32.0-36.0); MEAN CORPUSCULAR HEMOGLOB 27.6 pg (26.0-34.0); MEAN CORPUSCULAR VOLUME 82.3 fL (80-100); MEAN PLATELET VOLUME 10.4 fL (9.2-13.0); MONOCYTES ABSOLUTE 0.08 10/3/uL (0.21-1.20); NEUTROPHILS 88.5 %; NEUTROPHILS ABSOLUTE 1.77 10/3/uL (2.02-8.40); PLATELET COUNT 66 10/3/uL (150-400); RBC DISTRIBUTION WIDTH 16.5 % (12.0-16.0); RED CELL COUNT 2.94 10/6/uL (4.0-5.6)
[2016-07-26 04:59] LABS: MANUAL DIFF NO %
[2016-07-26 05:09] LABS: A/G RATIO 0.7 (0.7-1.9); ALBUMIN 2.3 G/DL (3.5-5.0); ALKALINE PHOSPHATASE 194 U/L (45-117); BUN (BLOOD UREA NITROGEN) 17 MG/DL (6-23); CALCIUM, SERUM 8.6 MG/DL (8.5-10.4); CHLORIDE, SERUM 107 MMOL/L (96-112); CO2 (CARBON DIOXIDE) 25 MMOL/L (24-34); CREATININE 0.62 MG/DL (0.55-1.02); GFR AFRICAN AMERICAN 120 ML/MIN (>=60); GFR NON AFRICAN AMERICAN 104 ML/MIN (>=60); GLOBULIN 3.4 G/DL (2.5-4.1); GLUCOSE, SERUM 202 MG/DL (60-99); POTASSIUM, SERUM 4.4 MMOL/L (3.5-5.3); SGOT(AST) 9 U/L (5-40); SGPT(ALT) 69 U/L (5-65); SODIUM, SERUM 139 MMOL/L (135-148); TOTAL BILIRUBIN 4.2 MG/DL (0-1.2); TOTAL PROTEIN 5.7 G/DL (6.0-8.5)
[2016-07-26 05:38] LABS: PLATELET ESTIMATE DEC (ADEQUATE)
[2016-07-26 05:39] LABS: SPHEROCYTES FEW (3-10/OIF)
[2016-07-27 05:31] LABS: BASOPHILS 0 %; EOSINOPHILS 0 %; HEMOGLOBIN 7.8 g/dL (12.0-16.0); IMMATURE GRANULOCYTES 0.9 %; IMMATURE GRANULOCYTES ABSOLUTE 0.02 10/3/uL (0.0-0.11); LYMPHOCYTES ABSOLUTE 0.13 10/3/uL (0.67-4.30); MANUAL DIFF NO %; MEAN CORPUS HGB CONC 32.5 g/dL (32.0-36.0); MEAN CORPUSCULAR HEMOGLOB 27.1 pg (26.0-34.0); MEAN CORPUSCULAR VOLUME 83.3 fL (80-100); MONOCYTES 1.9 %; MONOCYTES ABSOLUTE 0.04 10/3/uL (0.21-1.20); NEUTROPHILS 91.2 %; NEUTROPHILS ABSOLUTE 1.96 10/3/uL (2.02-8.40); PLATELET COUNT 68 10/3/uL (150-400); RBC DISTRIBUTION WIDTH 16.5 % (12.0-16.0); RED CELL COUNT 2.88 10/6/uL (4.0-5.6); WHITE BLOOD CELLS 2.2 10/3/uL (4.5-10.5)
[2016-07-27 05:51] LABS: A/G RATIO 0.6 (0.7-1.9); ALKALINE PHOSPHATASE 206 U/L (45-117); BUN (BLOOD UREA NITROGEN) 16 MG/DL (6-23); CALCIUM, SERUM 8.6 MG/DL (8.5-10.4); CHLORIDE, SERUM 107 MMOL/L (96-112); CO2 (CARBON DIOXIDE) 25 MMOL/L (24-34); CREATININE 0.55 MG/DL (0.55-1.02); GFR AFRICAN AMERICAN 125 ML/MIN (>=60); GFR NON AFRICAN AMERICAN 108 ML/MIN (>=60); GLOBULIN 3.5 G/DL (2.5-4.1); GLUCOSE, SERUM 145 MG/DL (60-99); POTASSIUM, SERUM 4.4 MMOL/L (3.5-5.3); SGOT(AST) 17 U/L (5-40); SGPT(ALT) 60 U/L (5-65); SODIUM, SERUM 139 MMOL/L (135-148); TOTAL PROTEIN 5.5 G/DL (6.0-8.5)
[2016-07-27 05:53] LABS: PLATELET ESTIMATE DEC (ADEQUATE)
[2016-07-27 05:54] LABS: ANISOCYTOSIS 1+ (5-10/OIF) (0-5/OIF); POIKILOCYTOSIS 1+ (5-10/OIF) (0-5/OIF)
[2016-07-28 02:51] LABS: HEMATOCRIT 24.1 % (36.0-48.0); HEMOGLOBIN 7.8 g/dL (12.0-16.0); MEAN CORPUS HGB CONC 32.4 g/dL (32.0-36.0); MEAN CORPUSCULAR HEMOGLOB 26.9 pg (26.0-34.0); MEAN CORPUSCULAR VOLUME 83.1 fL (80-100); PLATELET COUNT 67 10/3/uL (150-400); RBC DISTRIBUTION WIDTH 16.7 % (12.0-16.0)
[2016-07-28 02:54] LABS: MANUAL DIFF YES %
[2016-07-28 03:07] LABS: A/G RATIO 0.6 (0.7-1.9); ALBUMIN 1.8 G/DL (3.5-5.0); ALKALINE PHOSPHATASE 212 U/L (45-117); BUN (BLOOD UREA NITROGEN) 18 MG/DL (6-23); CALCIUM, SERUM 7.6 MG/DL (8.5-10.4); CHLORIDE, SERUM 107 MMOL/L (96-112); CO2 (CARBON DIOXIDE) 24 MMOL/L (24-34); CREATININE 0.64 MG/DL (0.55-1.02); GFR AFRICAN AMERICAN 119 ML/MIN (>=60); GFR NON AFRICAN AMERICAN 103 ML/MIN (>=60); GLOBULIN 3.1 G/DL (2.5-4.1); GLUCOSE, SERUM 115 MG/DL (60-99); POTASSIUM, SERUM 4.2 MMOL/L (3.5-5.3); SGOT(AST) 22 U/L (5-40); SGPT(ALT) 63 U/L (5-65); SODIUM, SERUM 139 MMOL/L (135-148); TOTAL BILIRUBIN 5.4 MG/DL (0-1.2); TOTAL PROTEIN 4.9 G/DL (6.0-8.5)
[2016-07-28 03:18] LABS: ANISOCYTOSIS 1+ (5-10/OIF) (0-5/OIF); BAND NEUTROPHILS 10 %; LYMPHOCYTES 15 %; LYMPHOCYTES ABSOLUTE (CALC) 0.15 10/3/uL (0.67-4.30); NEUTROPHILS ABSOLUTE (CALC) 0.85 10/3/uL (2.02-8.40); NUCLEATED RED BLOOD CELLS 1 /100WBC (0); PLATELET ESTIMATE DEC (ADEQUATE); SEGMENTED NEUTROPHIL (0) 75 %; TEARDROP SHAPED RBCS OCC (0-2/OIF); TOTAL NUCLEATED CELLS 100
[2016-07-28 03:46] LABS: PROCALCITONIN 6.72 ng/mL (<0.5)
[2016-07-28 05:10] LABS: ASCORBIC ACID (UR NOT ORDER) 40 (NEG); BILIRUBIN, URINE SMALL (NEG); KETONE, URINE 20 MG/DL (NEG); LEUKOCYTE ESTERASE(NOT OR NEG (NEG); WBC (NOT ORDERED) (RFLEX) 15 (0-5)
[2016-07-29 06:54] LABS: HEMATOCRIT 23.5 % (36.0-48.0); HEMOGLOBIN 7.7 g/dL (12.0-16.0); MEAN CORPUS HGB CONC 32.8 g/dL (32.0-36.0); MEAN CORPUSCULAR HEMOGLOB 26.7 pg (26.0-34.0); MEAN CORPUSCULAR VOLUME 81.6 fL (80-100); MEAN PLATELET VOLUME 10.8 fL (9.2-13.0); RBC DISTRIBUTION WIDTH 16.5 % (12.0-16.0); RED CELL COUNT 2.88 10/6/uL (4.0-5.6)
[2016-07-29 07:11] LABS: PLATELET COUNT 48 10/3/uL (150-400); WHITE BLOOD CELLS 0.2 10/3/uL (4.5-10.5)
[2016-07-29 07:12] LABS: MANUAL DIFF YES %
[2016-07-29 07:14] LABS: A/G RATIO 0.5 (0.7-1.9); ALBUMIN 1.6 G/DL (3.5-5.0); ALKALINE PHOSPHATASE 150 U/L (45-117); BUN (BLOOD UREA NITROGEN) 14 MG/DL (6-23); CALCIUM, SERUM 8.2 MG/DL (8.5-10.4); CHLORIDE, SERUM 108 MMOL/L (96-112); CO2 (CARBON DIOXIDE) 23 MMOL/L (24-34); CREATININE 0.69 MG/DL (0.55-1.02); GFR AFRICAN AMERICAN 116 ML/MIN (>=60); GFR NON AFRICAN AMERICAN 100 ML/MIN (>=60); GLOBULIN 3.2 G/DL (2.5-4.1); GLUCOSE, SERUM 103 MG/DL (60-99); POTASSIUM, SERUM 3.7 MMOL/L (3.5-5.3); SGOT(AST) 15 U/L (5-40); SGPT(ALT) 35 U/L (5-65); SODIUM, SERUM 138 MMOL/L (135-148); TOTAL BILIRUBIN 9.6 MG/DL (0-1.2); TOTAL PROTEIN 4.8 G/DL (6.0-8.5)
[2016-07-29 07:22] LABS: BAND NEUTROPHILS 8 %; LYMPHOCYTES 8 %; LYMPHOCYTES ABSOLUTE (CALC) 0.02 10/3/uL (0.67-4.30); NEUTROPHILS ABSOLUTE (CALC) 0.18 10/3/uL (2.02-8.40); SEGMENTED NEUTROPHIL (0) 83 %; TOTAL NUCLEATED CELLS 48
[2016-07-29 07:23] LABS: BASOPHILIC STIPPLING 1+ (2-5/OIF) (0-1/OIF); ELLIPTOCYTES 1+ (3-10/OIF) (0-2/OIF); HELMET CELLS OCC (0-2/OIF); POIKILOCYTOSIS 1+ (5-10/OIF) (0-5/OIF); TEARDROP SHAPED RBCS OCC (0-2/OIF)
[2016-07-29 08:08] LABS: INDIRECT BILIRUBIN(NOT ORDER) 2.5 MG/DL (0.1-0.9)
[2016-07-29 08:09] LABS: DIRECT BILIRUBIN 7.1 MG/DL (0.0-0.4)
[2016-07-30 05:49] LABS: MEAN CORPUS HGB CONC 33.5 g/dL (32.0-36.0); MEAN CORPUSCULAR VOLUME 80.5 fL (80-100); MEAN PLATELET VOLUME 10.4 fL (9.2-13.0); RBC DISTRIBUTION WIDTH 16.6 % (12.0-16.0)
[2016-07-30 05:52] LABS: HEMATOCRIT 18.2 % (36.0-48.0); HEMOGLOBIN 6.1 g/dL (12.0-16.0); PLATELET COUNT 33 10/3/uL (150-400); RED CELL COUNT 2.26 10/6/uL (4.0-5.6); WHITE BLOOD CELLS 0.1 10/3/uL (4.5-10.5)
[2016-07-30 05:55] LABS: MANUAL DIFF YES %
[2016-07-30 06:03] LABS: A/G RATIO 0.5 (0.7-1.9); ALBUMIN 1.5 G/DL (3.5-5.0); BUN (BLOOD UREA NITROGEN) 13 MG/DL (6-23); CALCIUM, SERUM 7.9 MG/DL (8.5-10.4); CHLORIDE, SERUM 109 MMOL/L (96-112); CO2 (CARBON DIOXIDE) 20 MMOL/L (24-34); CREATININE 0.58 MG/DL (0.55-1.02); GFR AFRICAN AMERICAN 123 ML/MIN (>=60); GFR NON AFRICAN AMERICAN 106 ML/MIN (>=60); GLOBULIN 2.9 G/DL (2.5-4.1); GLUCOSE, SERUM 96 MG/DL (60-99); POTASSIUM, SERUM 3.6 MMOL/L (3.5-5.3); SGOT(AST) 30 U/L (5-40); SGPT(ALT) 39 U/L (5-65); SODIUM, SERUM 138 MMOL/L (135-148); TOTAL PROTEIN 4.4 G/DL (6.0-8.5)
[2016-07-30 06:04] LABS: ALKALINE PHOSPHATASE 117 U/L (45-117); TOTAL BILIRUBIN 8.5 MG/DL (0-1.2)
[2016-07-30 06:27] LABS: LYMPHOCYTES 67 %; LYMPHOCYTES ABSOLUTE (CALC) 0.07 10/3/uL (0.67-4.30); NEUTROPHILS ABSOLUTE (CALC) 0.03 10/3/uL (2.02-8.40); SEGMENTED NEUTROPHIL (0) 33 %; TOTAL NUCLEATED CELLS 6
[2016-07-30 06:28] LABS: RBC MORPHOLOGY NORM (NORMAL)
[2016-07-31 05:25] LABS: MEAN CORPUS HGB CONC 33.8 g/dL (32.0-36.0); MEAN CORPUSCULAR VOLUME 79.7 fL (80-100); RED CELL COUNT 2.56 10/6/uL (4.0-5.6)
[2016-07-31 05:27] LABS: HEMATOCRIT 20.4 % (36.0-48.0); HEMOGLOBIN 6.9 g/dL (12.0-16.0); PLATELET COUNT 30 10/3/uL (150-400); WHITE BLOOD CELLS 0.1 10/3/uL (4.5-10.5)
[2016-07-31 05:28] LABS: MANUAL DIFF YES %
[2016-07-31 05:57] LABS: A/G RATIO 0.5 (0.7-1.9); ALBUMIN 1.4 G/DL (3.5-5.0); ALKALINE PHOSPHATASE 121 U/L (45-117); BUN (BLOOD UREA NITROGEN) 13 MG/DL (6-23); CALCIUM, SERUM 8.1 MG/DL (8.5-10.4); CHLORIDE, SERUM 110 MMOL/L (96-112); CO2 (CARBON DIOXIDE) 18 MMOL/L (24-34); CREATININE 0.61 MG/DL (0.55-1.02); GFR AFRICAN AMERICAN 121 ML/MIN (>=60); GFR NON AFRICAN AMERICAN 104 ML/MIN (>=60); GLOBULIN 3.1 G/DL (2.5-4.1); GLUCOSE, SERUM 115 MG/DL (60-99); POTASSIUM, SERUM 3.5 MMOL/L (3.5-5.3); SGOT(AST) 32 U/L (5-40); SGPT(ALT) 41 U/L (5-65); SODIUM, SERUM 138 MMOL/L (135-148); TOTAL BILIRUBIN 10.9 MG/DL (0-1.2); TOTAL PROTEIN 4.5 G/DL (6.0-8.5)
[2016-07-31 07:09] LABS: LYMPHOCYTES 100 %; RBC MORPHOLOGY NORM (NORMAL); TOTAL NUCLEATED CELLS 1
[2016-08-01 05:32] LABS: INTERNATIONAL NORMAL RATI 1.7 UNITS (-)
[2016-08-01 05:33] LABS: PARTIAL THROMBO TIME 50.7 SEC (22.5-37.2)
[2016-08-01 05:34] LABS: PROTIME (NOT ORD) 20.2 SEC (12.0-14.5)
[2016-08-01 05:37] LABS: MEAN CORPUS HGB CONC 34.1 g/dL (32.0-36.0); MEAN CORPUSCULAR HEMOGLOB 27.8 pg (26.0-34.0); MEAN CORPUSCULAR VOLUME 81.5 fL (80-100); RBC DISTRIBUTION WIDTH 16.4 % (12.0-16.0)
[2016-08-01 05:38] LABS: HEMATOCRIT 25.5 % (36.0-48.0); HEMOGLOBIN 8.7 g/dL (12.0-16.0); MANUAL DIFF YES %; PLATELET COUNT 53 10/3/uL (150-400); RED CELL COUNT 3.13 10/6/uL (4.0-5.6); WHITE BLOOD CELLS 0.1 10/3/uL (4.5-10.5)
[2016-08-01 05:55] LABS: A/G RATIO 0.5 (0.7-1.9); ALBUMIN 1.7 G/DL (3.5-5.0); ALKALINE PHOSPHATASE 137 U/L (45-117); BUN (BLOOD UREA NITROGEN) 14 MG/DL (6-23); CALCIUM, SERUM 8.8 MG/DL (8.5-10.4); CHLORIDE, SERUM 106 MMOL/L (96-112); CO2 (CARBON DIOXIDE) 20 MMOL/L (24-34); CREATININE 0.78 MG/DL (0.55-1.02); GFR AFRICAN AMERICAN 101 ML/MIN (>=60); GFR NON AFRICAN AMERICAN 87 ML/MIN (>=60); GLOBULIN 3.5 G/DL (2.5-4.1); GLUCOSE, SERUM 116 MG/DL (60-99); POTASSIUM, SERUM 3.7 MMOL/L (3.5-5.3); SGOT(AST) 41 U/L (5-40); SGPT(ALT) 52 U/L (5-65); SODIUM, SERUM 137 MMOL/L (135-148); TOTAL PROTEIN 5.2 G/DL (6.0-8.5)
[2016-08-01 06:08] LABS: LYMPHOCYTES 100 %; TOTAL NUCLEATED CELLS 5
[2016-08-01 06:09] LABS: PLATELET ESTIMATE DEC (ADEQUATE); RBC MORPHOLOGY NORM (NORMAL)
[2016-08-02 04:55] LABS: HEMOGLOBIN 7.8 g/dL (12.0-16.0); MEAN CORPUS HGB CONC 33.9 g/dL (32.0-36.0); MEAN CORPUSCULAR HEMOGLOB 27.9 pg (26.0-34.0); MEAN CORPUSCULAR VOLUME 82.1 fL (80-100); RBC DISTRIBUTION WIDTH 16.5 % (12.0-16.0)
[2016-08-02 04:56] LABS: PLATELET COUNT 35 10/3/uL (150-400); WHITE BLOOD CELLS 0.1 10/3/uL (4.5-10.5)
[2016-08-02 04:57] LABS: MANUAL DIFF YES %
[2016-08-02 05:15] LABS: LYMPHOCYTES 100 %; TOTAL NUCLEATED CELLS 1
[2016-08-02 05:16] LABS: RBC MORPHOLOGY NORM (NORMAL)
[2016-08-02 05:19] LABS: A/G RATIO 0.5 (0.7-1.9); ALBUMIN 1.5 G/DL (3.5-5.0); ALKALINE PHOSPHATASE 129 U/L (45-117); BUN (BLOOD UREA NITROGEN) 16 MG/DL (6-23); CALCIUM, SERUM 8.6 MG/DL (8.5-10.4); CHLORIDE, SERUM 109 MMOL/L (96-112); CO2 (CARBON DIOXIDE) 22 MMOL/L (24-34); CREATININE 0.59 MG/DL (0.55-1.02); GFR AFRICAN AMERICAN 122 ML/MIN (>=60); GFR NON AFRICAN AMERICAN 105 ML/MIN (>=60); GLOBULIN 3.2 G/DL (2.5-4.1); GLUCOSE, SERUM 139 MG/DL (60-99); POTASSIUM, SERUM 3.4 MMOL/L (3.5-5.3); SGOT(AST) 41 U/L (5-40); SGPT(ALT) 65 U/L (5-65); SODIUM, SERUM 141 MMOL/L (135-148); TOTAL PROTEIN 4.7 G/DL (6.0-8.5)
[2016-08-02 05:20] LABS: TOTAL BILIRUBIN 12.6 MG/DL (0-1.2)
[2016-08-02 05:54] LABS: INTERNATIONAL NORMAL RATI 2.1 UNITS (-)
[2016-08-02 05:55] LABS: PARTIAL THROMBO TIME 60.3 SEC (22.5-37.2)
[2016-08-02 05:56] LABS: PROTIME (NOT ORD) 23.6 SEC (12.0-14.5)
[2016-08-02 17:28] LABS: MEAN CORPUS HGB CONC 34.8 g/dL (32.0-36.0); MEAN CORPUSCULAR HEMOGLOB 28.1 pg (26.0-34.0); MEAN CORPUSCULAR VOLUME 80.7 fL (80-100); MEAN PLATELET VOLUME 11.4 fL (9.2-13.0); RBC DISTRIBUTION WIDTH 16.5 % (12.0-16.0); RED CELL COUNT 2.85 10/6/uL (4.0-5.6)
[2016-08-02 17:31] LABS: PLATELET COUNT 53 10/3/uL (150-400); WHITE BLOOD CELLS 0.1 10/3/uL (4.5-10.5)
[2016-08-02 17:32] LABS: MANUAL DIFF YES %
[2016-08-02 17:34] LABS: PARTIAL THROMBO TIME 51.3 SEC (22.5-37.2)
[2016-08-02 17:35] LABS: INTERNATIONAL NORMAL RATI 1.8 UNITS (-); PROTIME (NOT ORD) 20.8 SEC (12.0-14.5)
[2016-08-02 17:49] LABS: MITOCHONDRIAL ANTIBODY Negative (NEG); SMOOTH MUSCLE ANTIBODIES Negative (NEG)
[2016-08-02 17:50] LABS: LYMPHOCYTES 100 %; PLATELET ESTIMATE DEC (ADEQUATE); RBC MORPHOLOGY NORM (NORMAL); TOTAL NUCLEATED CELLS 10
[2016-08-03 06:32] LABS: HEMATOCRIT 23.5 % (36.0-48.0); MEAN CORPUSCULAR HEMOGLOB 27.2 pg (26.0-34.0); MEAN CORPUSCULAR VOLUME 79.9 fL (80-100); RBC DISTRIBUTION WIDTH 17.2 % (12.0-16.0); RED CELL COUNT 2.94 10/6/uL (4.0-5.6)
[2016-08-03 06:33] LABS: MANUAL DIFF YES %; PLATELET COUNT 73 10/3/uL (150-400); WHITE BLOOD CELLS 0.1 10/3/uL (4.5-10.5)
[2016-08-03 06:37] LABS: INTERNATIONAL NORMAL RATI 1.4 UNITS (-); PARTIAL THROMBO TIME 38.8 SEC (22.5-37.2)
[2016-08-03 06:38] LABS: PROTIME (NOT ORD) 16.6 SEC (12.0-14.5)
[2016-08-03 07:00] LABS: A/G RATIO 0.5 (0.7-1.9); ALBUMIN 1.5 G/DL (3.5-5.0); BUN (BLOOD UREA NITROGEN) 13 MG/DL (6-23); CALCIUM, SERUM 8.7 MG/DL (8.5-10.4); CHLORIDE, SERUM 105 MMOL/L (96-112); CO2 (CARBON DIOXIDE) 24 MMOL/L (24-34); CREATININE 0.56 MG/DL (0.55-1.02); GFR AFRICAN AMERICAN 124 ML/MIN (>=60); GFR NON AFRICAN AMERICAN 107 ML/MIN (>=60); GLOBULIN 3.1 G/DL (2.5-4.1); GLUCOSE, SERUM 131 MG/DL (60-99); POTASSIUM, SERUM 3.5 MMOL/L (3.5-5.3); SGPT(ALT) 58 U/L (5-65); SODIUM, SERUM 137 MMOL/L (135-148); TOTAL PROTEIN 4.6 G/DL (6.0-8.5)
[2016-08-03 07:01] LABS: ALKALINE PHOSPHATASE 243 U/L (45-117); TOTAL BILIRUBIN 14.3 MG/DL (0-1.2)
[2016-08-03 07:02] LABS: ANISOCYTOSIS 1+ (5-10/OIF) (0-5/OIF); LYMPHOCYTES 100 %; PLATELET ESTIMATE DEC (ADEQUATE); TOTAL NUCLEATED CELLS 100
[2016-08-03 07:02] LABS: SGOT(AST) 23 U/L (5-40)
[2016-08-04 05:06] LABS: HEMATOCRIT 22.7 % (36.0-48.0); HEMOGLOBIN 7.8 g/dL (12.0-16.0); MEAN CORPUS HGB CONC 34.4 g/dL (32.0-36.0); MEAN CORPUSCULAR HEMOGLOB 27.4 pg (26.0-34.0); MEAN CORPUSCULAR VOLUME 79.6 fL (80-100); RBC DISTRIBUTION WIDTH 17.1 % (12.0-16.0); RED CELL COUNT 2.85 10/6/uL (4.0-5.6)
[2016-08-04 05:08] LABS: PLATELET COUNT 42 10/3/uL (150-400); WHITE BLOOD CELLS 0.2 10/3/uL (4.5-10.5)
[2016-08-04 05:11] LABS: MANUAL DIFF YES %
[2016-08-04 05:28] LABS: A/G RATIO 0.5 (0.7-1.9); ALBUMIN 1.5 G/DL (3.5-5.0); ALKALINE PHOSPHATASE 232 U/L (45-117); BUN (BLOOD UREA NITROGEN) 10 MG/DL (6-23); CALCIUM, SERUM 8.4 MG/DL (8.5-10.4); CHLORIDE, SERUM 101 MMOL/L (96-112); CO2 (CARBON DIOXIDE) 31 MMOL/L (24-34); CREATININE 0.47 MG/DL (0.55-1.02); GFR AFRICAN AMERICAN 132 ML/MIN (>=60); GFR NON AFRICAN AMERICAN 114 ML/MIN (>=60); GLOBULIN 3.1 G/DL (2.5-4.1); GLUCOSE, SERUM 127 MG/DL (60-99); POTASSIUM, SERUM 3.6 MMOL/L (3.5-5.3); SGOT(AST) 13 U/L (5-40); SGPT(ALT) 41 U/L (5-65); SODIUM, SERUM 138 MMOL/L (135-148); TOTAL PROTEIN 4.6 G/DL (6.0-8.5)
[2016-08-04 05:29] LABS: TOTAL BILIRUBIN 12.4 MG/DL (0-1.2)
[2016-08-04 05:34] LABS: LYMPHOCYTES 100 %; TOTAL NUCLEATED CELLS 100
[2016-08-04 05:35] LABS: MACROCYTES 1+ (5-10/OIF) (0-5/OIF)
[2016-08-04 05:36] LABS: HYPOCHROMIA 1+ (3-10/OIF) (0-2/OIF)
[2016-08-05 05:20] LABS: HEMATOCRIT 21.5 % (36.0-48.0); HEMOGLOBIN 7.4 g/dL (12.0-16.0); MEAN CORPUS HGB CONC 34.4 g/dL (32.0-36.0); MEAN CORPUSCULAR HEMOGLOB 27.5 pg (26.0-34.0); MEAN CORPUSCULAR VOLUME 79.9 fL (80-100); PLATELET COUNT 28 10/3/uL (150-400); RBC DISTRIBUTION WIDTH 16.7 % (12.0-16.0); RED CELL COUNT 2.69 10/6/uL (4.0-5.6); WHITE BLOOD CELLS 0.2 10/3/uL (4.5-10.5)
[2016-08-05 05:21] LABS: MANUAL DIFF YES %
[2016-08-05 05:41] LABS: A/G RATIO 0.5 (0.7-1.9); ALBUMIN 1.6 G/DL (3.5-5.0); CALCIUM, SERUM 8.1 MG/DL (8.5-10.4); CHLORIDE, SERUM 101 MMOL/L (96-112); CO2 (CARBON DIOXIDE) 32 MMOL/L (24-34); CREATININE 0.48 MG/DL (0.55-1.02); GFR AFRICAN AMERICAN 131 ML/MIN (>=60); GFR NON AFRICAN AMERICAN 113 ML/MIN (>=60); GLOBULIN 3.2 G/DL (2.5-4.1); GLUCOSE, SERUM 118 MG/DL (60-99); POTASSIUM, SERUM 3.7 MMOL/L (3.5-5.3); SGOT(AST) 12 U/L (5-40); SGPT(ALT) 31 U/L (5-65); SODIUM, SERUM 137 MMOL/L (135-148); TOTAL PROTEIN 4.8 G/DL (6.0-8.5); VANCOMYCIN TROUGH 12.6 MCG/ML (10.0-20.0)
[2016-08-05 05:44] LABS: ALKALINE PHOSPHATASE 211 U/L (45-117); BUN (BLOOD UREA NITROGEN) 14 MG/DL (6-23); TOTAL BILIRUBIN 10.4 MG/DL (0-1.2)
[2016-08-05 06:02] LABS: LYMPHOCYTES 83 %; LYMPHOCYTES ABSOLUTE (CALC) 0.17 10/3/uL (0.67-4.30); METAMYELOCYTES 1 %; MONOCYTES 5 %; MONOCYTES ABSOLUTE (CALC) 0.01 10/3/uL (0.21-1.20); NEUTROPHILS ABSOLUTE (CALC) 0.02 10/3/uL (2.02-8.40); SEGMENTED NEUTROPHIL (0) 11 %; TOTAL NUCLEATED CELLS 100
[2016-08-05 06:03] LABS: ANISOCYTOSIS 1+ (5-10/OIF) (0-5/OIF); MICROCYTES 1+ (5-10/OIF) (0-5/OIF)
[2016-09-14] MEDS ORDERED: PROTONIX PO (14:29)
[2016-09-14] MEDS ORDERED: REM15 PO (14:29)
[2016-09-14] MEDS ORDERED: PERI-COLACE1 TAB PO (14:30)
[2016-09-14] MEDS ORDERED: ZANTAC150 MG PO (14:30)
[2016-09-14] MEDS ORDERED: GLUCPH PO (14:57)
[2016-09-19] MEDS ORDERED: PROTONIX PO (10:40)
[2016-09-19] MEDS ORDERED: SENTAB PO (10:41)
[2016-09-19] MEDS ORDERED: ZANTAC150 MG PO (10:41)
[2016-09-19] MEDS ORDERED: NORCO1 TA2 PO (10:41)
[2016-09-19] MEDS ORDERED: REM15 PO (10:41)
[2016-09-28] MEDS ORDERED: OXYCOD PO (21:36)
[2016-10-03] MEDS ORDERED: LEVAQUIN750 MG PO (10:55)
[2016-10-16] MEDS ORDERED: ZOVIRAX400 MG (11:44)
[2016-10-16] MEDS ORDERED: FLUCON2 PO (11:45)
[2016-10-16] MEDS ORDERED: DEX4 PO (11:46)
[2016-10-16] MEDS ORDERED: MIRALAX POWDER1 PKT PO (11:48)
[2016-10-16] MEDS ORDERED: ATV1 PO (11:48)
[2016-10-16] MEDS ORDERED: ZOFRAN4 PO (11:49)
[2016-10-31] MEDS ORDERED: ZOVIRAX400 MG PO (18:40)
[2016-10-31] MEDS ORDERED: FLUCON2 PO (18:40)
[2016-10-31] MEDS ORDERED: LEVAQUIN750 MG PO (18:41)
[2016-10-31] MEDS ORDERED: OXYCOD PO (18:41)
[2016-10-31] MEDS ORDERED: REMERON30 MG PO (18:41)
[2016-10-31] MEDS ORDERED: NEULASTA SC (18:42)
[2016-10-31] MEDS ORDERED: CHEMOTHERAPY IV (18:42)
[2016-10-31] MEDS ORDERED: PROTONIX PO (18:43)
[2016-10-31] MEDS ORDERED: ZANTAC 150 PO (18:43)
== END 2016-08-05 16:56 | disposition short-term general hospital (02) | DRG 834 ==
LOC: ER 11:18 → 4SO 15:40 → 4EA 07-23 09:23
PROVIDERS: Emergency Medicine; Internal Medicine; Internal Medicine Gastroenterology; Internal Medicine Hematology & Oncology; Internal Medicine Infectious Disease; Nurse Practitioner Family; Radiology Diagnostic Radiology; Student in an Organized Health Care Education/Training Program
PROC: 0F798DZ Dilation of Common Bile Duct with Intraluminal Device, Via Natural or Artificial Opening Endoscopic (ICD-10-PCS; 2016-07-15)
PROC: 0DB48ZX Excision of Esophagogastric Junction, Via Natural or Artificial Opening Endoscopic, Diagnostic (ICD-10-PCS; principal; 2016-07-20 07:30)
PROC: 0DB68ZX Excision of Stomach, Via Natural or Artificial Opening Endoscopic, Diagnostic (ICD-10-PCS; 2016-07-20 07:30)
PROC: 0F9930Z Drainage of Common Bile Duct with Drainage Device, Percutaneous Approach (ICD-10-PCS; 2016-07-20 07:30)
PROC: 0DC68ZZ Extirpation of Matter from Stomach, Via Natural or Artificial Opening Endoscopic (ICD-10-PCS; 2016-07-20 07:30)
PROC: 02HV33Z Insertion of Infusion Device into Superior Vena Cava, Percutaneous Approach (ICD-10-PCS; 2016-07-23)
PROC: 4A02X4A Measurement of Cardiac Electrical Activity, Guidance, External Approach (ICD-10-PCS; 2016-07-23)
PROC: 009U3ZX Drainage of Spinal Canal, Percutaneous Approach, Diagnostic (ICD-10-PCS; 2016-07-27)
DX: C91.00 Acute lymphoblastic leukemia not having achieved remission (principal); K83.1 Obstruction of bile duct; K72.00 Acute and subacute hepatic failure without coma; T18.2XXA Foreign body in stomach, initial encounter; K85.90 Acute pancreatitis without necrosis or infection, unspecified; D61.810 Antineoplastic chemotherapy induced pancytopenia; C83.53 Lymphoblastic (diffuse) lymphoma, intra-abdominal lymph nodes; N39.0 Urinary tract infection, site not specified; K76.0 Fatty (change of) liver, not elsewhere classified; B96.89 Other specified bacterial agents as the cause of diseases classified elsewhere; E11.9 Type 2 diabetes mellitus without complications; K37 Unspecified appendicitis; E78.5 Hyperlipidemia, unspecified; K59.03 Drug induced constipation; T40.2X5A Adverse effect of other opioids, initial encounter; K31.9 Disease of stomach and duodenum, unspecified; R93.3 Abnormal findings on diagnostic imaging of other parts of digestive tract; R93.2 Abnormal findings on diagnostic imaging of liver and biliary tract; R16.1 Splenomegaly, not elsewhere classified; Z79.84 Long term (current) use of oral hypoglycemic drugs; Z79.899 Other long term (current) drug therapy; Z90.49 Acquired absence of other specified parts of digestive tract; Z87.440 Personal history of urinary (tract) infections; Z88.5 Allergy status to narcotic agent; Z88.2 Allergy status to sulfonamides
CPT/HCPCS: 36415; 36430; 36569; 38221; 47531; 47534; 47536; 47538; 49083; 49418; 49424; 62270; 71010; 71020; 71260; 74000; 74176; 74177; 74178; 74181; 74330; 76080; 77003; 78226; 80048; 80053; 80061; 80069; 80074; 80076; 80202; 81001; 82105; 82140; 82247; 82248; 82945; 82962; 82977; 83036; 83605; 83615; 83690; 83735; 84100; 84132; 84145; 84157; 84443; 84550; 85014; 85018; 85025; 85045; 85384; 85610; 85730; 86255; 86301; 86664; 86665; 86665-59; 86677; 86850; 86900; 86901; 86920; 87040; 87070; 87075; 87077; 87086; 87102; 87150; 87186; 87205; 88112; 88305; 88311; 88313; 88333; 88341; 88342; 88360; 89051; 93005; 93306; 96374; 96375; 96450; 99152; 99153; 99285; A9270-GY; A9537; C1729; C1751; C1769; C1894; C2625; C9113; J0330; J0690; J1170; J1450; J1720; J1956; J2250; J2370; J2405; J2543; J2550; J2710; J3010; J3370; J3430; J9000; J9070; J9100; J9209; J9260; J9310; J9370; P9035; P9037; P9040; Q9967